=== PATIENT | male | born 1965 | race American Indian/Alaskan Native ===

== ENCOUNTER 2017-02-28 17:47 | Emergency (ER) | payer SELFPAY ==
[2017-02-28 18:00] VITALS: BP 121/86
--- NOTE | 2017-02-28 18:16 | Emergency Department Report ---
Chief Complaint: Headache Stated Complaint: HEADACHE Time Seen by Provider: 02/28/17 18:11 - HPI History of Present Illness: Patient is a 51-year-old male presents to ED with no problem medical history complaining of sharp piercing headache from the back of his head to his eyes. Patient states this is the worst headache he has had ever had patient states he does not get sick usually. Patient states he is having some blurry vision and light his eyes. He denies fever, nausea, vomiting, chest pain, shortness of breath - ROS Review of Systems: As noted in HPI - Exam Vital Signs: Vital Signs 02/28/17 17:54 Temperature 98.3 F Pulse Rate 123 H Respiratory 19 Rate Blood Pressure 121/86 O2 Sat by Pulse 96 Oximetry Physical Exam: GENERAL: Alert and oriented x3, mild distress closing eyes and holding his head , Normal Gait, atraumatic. HEAD: Head is normocephalic and a-traumatic. EYES: Pupils is dilated, sclera clear and nonerythematous, patient unable to open eyes were light examination LUNGS: Symetrical with respiration, No wheezing, no rales or crackles, CTAB. HEART: S1, S2 present, regular rate and rhythm without murmur, no rubs, no gallops. Non tender to palpation MSE screening note: Focused history and physical exam performed. Due to findings the following was ordered: ED Medical Decision Making - Medical Decision Making Labs ordered ,CT ordered. he is to be seen by ed physician ED Disposition for MSE Condition: Stable
[2017-02-28 19:14] LABS: Basophils % (Auto) 1.7 % (0.0-1.8); Eosinophils % (Auto) 8.8 % (0.0-4.3); Hematocrit 46.9 % (35.5-45.6); Hemoglobin 15.8 gm/dl (11.8-15.2); Mean Corpuscular HGB Conc 34 % (32-34); Mean Corpuscular Hemoglobin 33 pg (28-32); Mean Corpuscular Volume 97 fl (84-94); Platelet Count 221 K/mm3 (140-440); Red Blood Count 4.84 M/mm3 (3.65-5.03); Red Cell Distribution Width 14.9 % (13.2-15.2); White Blood Count 5.1 K/mm3 (4.5-11.0)
[2017-02-28 19:26] LABS: Anion Gap 25 mmol/L; BUN/Creatinine Ratio 9.09; Blood Urea Nitrogen 10 mg/dL (9-20); Calcium 8.8 mg/dL (8.4-10.2); Carbon Dioxide 24 mmol/L (22-30); Chloride 102.3 mmol/L (98-107); Glucose 81 mg/dL (75-100); Potassium 4.2 mmol/L (3.6-5.0); Sodium 147 mmol/L (137-145)
--- NOTE | 2017-02-28 20:17 | Cat Scan Report ---
FINAL REPORT PROCEDURE: CT HEAD/BRAIN WO CON TECHNIQUE: Computerized tomography of the head was performed without contrast material. HISTORY: pain COMPARISON: No prior studies are available for comparison. FINDINGS: No CT evidence of intracranial mass, hemorrhage, acute territorial infarction, or hydrocephalus. The intracranial arteries are symmetric in density. Calvarium is intact. There is chronic appearing deformity of the left medial orbital wall, likely related to old trauma. There is mucosal thickening within the left frontal and left ethmoid sinuses. Mastoids are aerated. IMPRESSION: Mild to moderate sinus disease as described above. No CT evidence of acute intracranial abnormality
--- NOTE | 2017-03-05 13:14 | ED Elopement Review ---
ED Pt Elopement review - Results review Lab results: Laboratory Tests 02/28/17 02/28/17 18:50 18:50 WBC 5.1 RBC 4.84 Hgb 15.8 H Hct 46.9 H MCV 97 H MCH 33 H MCHC 34 RDW 14.9 Plt Count 221 Lymph % (Auto) 35.9 H [place] % (Auto) 9.1 H Eos % (Auto) 8.8 H Baso % (Auto) 1.7 Lymph # 1.8 [place] # 0.5 Eos # 0.4 Baso # 0.1 Seg Neutrophils % 44.5 Seg Neutrophils # 2.3 Sodium 147 H Potassium 4.2 Chloride 102.3 Carbon Dioxide 24 Anion Gap 25 BUN 10 Creatinine 1.1 Estimated GFR > 60 BUN/Creatinine Ratio 9.09 Glucose 81 Calcium 8.8 - Call Back decision Pt Call Back Decision: Call pt to return to ED [facility] (Please call and ask how feeling. If better, no need to return)
== END 2017-03-01 01:30 | disposition left against medical advice (07) ==
LOC: ED 17:47
DX: R51 Headache (principal); Z53.21 Procedure and treatment not carried out due to patient leaving prior to being seen by health care provider
CPT/HCPCS: 36415; 70450; 80048; 85025

== ENCOUNTER 2017-06-28 00:16 | Inpatient (IN) | payer OTHER ==
[2017-06-28 03:08] LABS: Anion Gap 24 mmol/L; BUN/Creatinine Ratio 17; Basophils % (Auto) 0.7 % (0.0-1.8); Blood Urea Nitrogen 5 mg/dL (9-20); Calcium 8.4 mg/dL (8.4-10.2); Carbon Dioxide 23 mmol/L (22-30); Chloride 90.2 mmol/L (98-107); Eosinophils % (Auto) 1.2 % (0.0-4.3); Glucose 83 mg/dL (75-100); Hematocrit 35.7 % (35.5-45.6); Hemoglobin 12.4 gm/dl (11.8-15.2); Mean Corpuscular HGB Conc 35 % (32-34); Mean Corpuscular Hemoglobin 32 pg (28-32); Mean Corpuscular Volume 92 fl (84-94); Potassium 3.8 mmol/L (3.6-5.0); Red Cell Distribution Width 18.6 % (13.2-15.2); Sodium 133 mmol/L (137-145); White Blood Count 5.4 K/mm3 (4.5-11.0)
[2017-06-28 03:21] LABS: Platelet Count 64 K/mm3 (140-440)
[2017-06-28 04:27] LABS: Albumin 3.7 g/dL (3.9-5); Albumin/Globulin Ratio 1.4 %; Bilirubin,Total 18.2 mg/dL (0.1-1.2); Total Protein 6.3 g/dL (6.3-8.2)
[2017-06-28 05:08] LABS: Bilirubin,Direct 12.5 mg/dL (0-0.2); Bilirubin,Indirect 5.7 mg/dL
[2017-06-28] MEDS ORDERED: BENADRYL IV ONE (06:37)
[2017-06-28] MEDS ORDERED: REGLAN IV ONE (06:37)
[2017-06-28] MEDS ORDERED: PROVENTIL IH ONE (06:37)
[2017-06-28] MEDS ORDERED: ATROVENT IH ONE (06:37)
--- NOTE | 2017-06-28 06:39 | Emergency Department Report ---
ED General Adult HPI - General Chief complaint: Abdominal Pain Stated complaint: ABD/HEAD PAIN Time Seen by Provider: 06/28/17 03:36 Source: patient, EMS, RN notes reviewed, old records reviewed Mode of arrival: Stretcher Limitations: No Limitations - History of Present Illness Initial comments: This is a 52-year-old male. The patient is previously known to this provider. Patient presents to the ER with main complaint of abdominal pain, and distention. Pain has been present for months. He reports that his recently gotten worse. He does admits to yellowing of the skin, and jaundice in the eyes. Reports no IV drug use for 6-7 years. Reports daily alcohol intake, one to 2 beers. Pain is achy, increases with palpation and range of motion, and decreases with rest. Patient is in the right upper quadrant and right flank. Patient also complains of headache. Headache is global. Headache present for months to years. Headache is not sudden or thunderclap in nature. Patient had a negative CAT scan at this hospital within the past year for brain. Patient also endorses left upper extremity tingling and numbness, also in the left lower extremity. This is painless. This has been present for one week. He does not have exacerbating or relieving factors. Also admits to cough , wheezing, mucus production with no chest pain. -: Gradual Location: head, abdomen Severity scale (0 -10): 0 Quality: aching Consistency: constant Improves with: movement, rest Associated Symptoms: cough, headaches, loss of appetite, malaise, shortness of breath, weakness. denies: confusion, chest pain - Related Data Home Medications Medication Instructions Recorded Confirmed Last Taken No Known Home Medications [No 06/28/17 06/28/17 Unknown Reported Home Medications] Allergies Allergy/AdvReac Type Severity Reaction Status Date / Time aspirin AdvReac DIFFICULTY Verified 02/28/17 18:00 BREATHING ED Review of Systems ROS: Stated complaint: ABD/HEAD PAIN Other details as noted in HPI Constitutional: malaise, weakness Eyes: denies: eye discharge ENT: denies: epistaxis Respiratory: cough, shortness of breath, wheezing Cardiovascular: denies: chest pain Gastrointestinal: abdominal pain Genitourinary: denies: dysuria Musculoskeletal: arthralgia Skin: lesions Neurological: weakness, numbness Psychiatric: denies: homicidal thoughts, suicidal thoughts ED Past Medical Hx - Past Medical History Previous Medical History?: Yes Hx Asthma: Yes Hx COPD: Yes - Surgical History Additional Surgical History: SINUS. LEFT LEG. TONSILLECTOMY - Social History Smoking Status: Current Every Day Smoker Substance Use Type: Alcohol, Marijuana - Medications Home Medications: Home Medications Medication Instructions Recorded Confirmed Last Taken Type No Known Home Medications [No 06/28/17 06/28/17 Unknown History Reported Home Medications] ED Physical Exam - General Limitations: No Limitations General appearance: alert, in no apparent distress - Head Head exam: Present: atraumatic, normocephalic - Eye Eye exam: Present: normal appearance, PERRL, EOMI, scleral icterus - ENT ENT exam: Present: normal exam, normal orophraynx, mucous membranes moist, normal external ear exam - Neck Neck exam: Present: normal inspection, full ROM. Absent: tenderness, meningismus - Respiratory Respiratory exam: Present: wheezes. Absent: stridor - Cardiovascular Cardiovascular Exam: Present: normal rhythm, tachycardia, normal heart sounds. Absent: systolic murmur, diastolic murmur, rubs, gallop - GI/Abdominal GI/Abdominal exam: Present: soft, distended, tenderness, normal bowel sounds, other (caput medusae noted. fluid wave noted). Absent: guarding, rebound - Rectal Rectal exam: Present: deferred - Extremities Exam Extremities exam: Present: normal inspection, full ROM, normal capillary refill. Absent: pedal edema, joint swelling, calf tenderness - Back Exam Back exam: Present: normal inspection, full ROM. Absent: tenderness, CVA tenderness (R), CVA tenderness (L), muscle spasm, paraspinal tenderness, vertebral tenderness - Neurological Exam Neurological exam: Present: alert, oriented X3, normal gait, motor sensory deficit (there is 4 out of 5 strength left upper and left lower extremity. Sensation intact to light touch 4 extremity.), other (there is no facial droop. The tongue is midline. Extraocular movements are intact. Sensation intact bilaterally V1, V2, V3 distribution.Hearing intact. Tongue midline. Shoulder shrug intact bilaterally.) - Psychiatric Psychiatric exam: Present: anxious - Skin Skin exam: Present: warm, other (jaundiced skin is noted) ED Course Vital Signs 06/28/17 06/28/17 06/28/17 00:41 00:58 01:03 Temperature 98.7 F 98 F Pulse Rate 102 H 87 Pulse Rate [ Bilateral Upper Lobe] Respiratory 18 18 18 Rate Respiratory Rate [Bilateral Upper Lobe] Blood Pressure 120/71 Blood Pressure 130/68 [Right] O2 Sat by Pulse 97 98 98 Oximetry 06/28/17 06/28/17 06/28/17 02:14 06:21 07:36 Temperature 98 F Pulse Rate 92 H 71 Pulse Rate [ 80 Bilateral Upper Lobe] Respiratory 20 20 Rate Respiratory 20 Rate [Bilateral Upper Lobe] Blood Pressure Blood Pressure 99/55 [Right] O2 Sat by Pulse 92 94 Oximetry 06/28/17 06/28/17 07:46 14:00 Temperature 99.0 F Pulse Rate 115 H Pulse Rate [ 84 Bilateral Upper Lobe] Respiratory 16 Rate Respiratory 20 Rate [Bilateral Upper Lobe] Blood Pressure Blood Pressure 129/75 [Right] O2 Sat by Pulse 100 Oximetry - Reevaluation(s) Reevaluation #1: 06/28/17 07:49 Differential diagnosis, including but not limited to: Hepatic malignancy, biliary obstruction, COPD, subacute stroke Assessment and plan: 52-year-old male with scleral icterus, abdominal pain, but upper quadrant mass, hepatomegaly, hyperbilirubinemia, also incidental wheezing , clear chest x-ray, nonspecific neurologic complaints. Neurologic complaints have been present for a week, therefore not a TPA candidate for endovascular candidate, patient scores one on the NIH scale. CT scan of the brain is pending. CT scan of the abdomen and pelvis is pending. Reevaluation #2: 06/28/17 08:03 CT scan of the abdomen and pelvis demonstrates diffuse decreased attenuation of the liver, gallbladder dilated with a few small gallstones, no secondary findings of cholecystitis appreciated. Dedicated ultrasound ordered. Antibiotics empirically ordered. Reevaluation #3: 06/28/17 08:54 CT scan of brain is negative. right l quadrant ultrasound does not suggest cholecystitis. Case is presented to the hospital nurse practitioner, Florin Ba; she accepts the patient to the medical service. Reevaluation #4: 06/28/17 09:40 Case discussed with gastroenterology, Dr. Lazo, GI to follow in consultation. ED Medical Decision Making - Lab Data Result diagrams: 06/29/17 04:28 06/29/17 04:28 Vital Signs 06/28/17 06/28/17 06/28/17 00:41 00:58 01:03 Temperature 98.7 F 98 F Pulse Rate 102 H 87 Pulse Rate [ Bilateral Upper Lobe] Respiratory 18 18 18 Rate Respiratory Rate [Bilateral Upper Lobe] Blood Pressure 120/71 Blood Pressure 130/68 [Right] O2 Sat by Pulse 97 98 98 Oximetry 06/28/17 06/28/17 06/28/17 02:14 06:21 07:36 Temperature 98 F Pulse Rate 92 H 71 Pulse Rate [ 80 Bilateral Upper Lobe] Respiratory 20 20 Rate Respiratory 20 Rate [Bilateral Upper Lobe] Blood Pressure Blood Pressure 99/55 [Right] O2 Sat by Pulse 92 94 Oximetry 06/28/17 07:46 Temperature Pulse Rate Pulse Rate [ 84 Bilateral Upper Lobe] Respiratory Rate Respiratory 20 Rate [Bilateral Upper Lobe] Blood Pressure Blood Pressure [Right] O2 Sat by Pulse Oximetry Lab Results 06/28/17 06/28/17 06/28/17 Range/Units 02:25 02:25 04:03 WBC 5.4 (4.5-11.0) K/mm3 RBC 3.90 (3.65-5.03) M/mm3 Hgb 12.4 (11.8-15.2) gm/dl Hct 35.7 (35.5-45.6) % MCV 92 (84-94) fl MCH 32 (28-32) pg MCHC 35 H (32-34) % RDW 18.6 H (13.2-15.2) % Plt Count 64 L (140-440) K/mm3 Lymph % (Auto) 15.2 (13.4-35.0) % [place] % (Auto) 11.2 H (0.0-7.3) % Eos % (Auto) 1.2 (0.0-4.3) % Baso % (Auto) 0.7 (0.0-1.8) % Lymph # 0.8 L (1.2-5.4) K/mm3 [place] # 0.6 (0.0-0.8) K/mm3 Eos # 0.1 (0.0-0.4) K/mm3 Baso # 0.0 (0.0-0.1) K/mm3 Seg Neutrophils % 71.7 H (40.0-70.0) % Seg Neutrophils # 3.9 (1.8-7.7) K/mm3 Sodium 133 L (137-145) mmol/L Potassium 3.8 (3.6-5.0) mmol/L Chloride 90.2 L (98-107) mmol/L Carbon Dioxide 23 (22-30) mmol/L Anion Gap 24 mmol/L BUN 5 L (9-20) mg/dL Creatinine 0.3 L (0.8-1.5) mg/dL Estimated GFR > 60 ml/min BUN/Creatinine Ratio 17 % Glucose 83 (75-100) mg/dL Calcium 8.4 (8.4-10.2) mg/dL Total Bilirubin 18.20 H (0.1-1.2) mg/dL Direct Bilirubin 12.5 H (0-0.2) mg/dL Indirect Bilirubin 5.7 mg/dL AST 341 H (5-40) units/L ALT 86 H (7-56) units/L Alkaline Phosphatase 100 (35-129) units/L Total Protein 6.3 (6.3-8.2) g/dL Albumin 3.7 L (3.9-5) g/dL Albumin/Globulin Ratio 1.4 % Lipase 48 (13-60) units/L - EKG Data -: EKG Interpreted by Me Rate: tachycardia - EKG Data 06/28/17 07:51 Sinus tachycardia, 111 bpm, normal intervals, normal axis, not morphologically consistent with stemi - Radiology Data Radiology results: report reviewed, image reviewed X-ray of the chest is negative noncontrast CT scan of the brain: Atrophy and microangiopathic ischemic disease. No acute intracranial process is noted, sinus disease as noted. Critical care attestation.: If time is entered above; I have spent that time in minutes in the direct care of this critically ill patient, excluding procedure time. ED Disposition Clinical Impression: Left sided numbness, Hyperbilirubinemia Disposition: OP ADMIT IP TO THIS HOSP Is pt being admited?: Yes Condition: Stable
--- NOTE | 2017-06-28 07:21 | XRay Report ---
AP CHEST: HISTORY: Cough, wheezing AP view of the chest demonstrates a normal mediastinal and cardiac contour with clear lungs and normal bony and soft tissue structures. IMPRESSION: Unremarkable AP chest.
[2017-06-28] MEDS ORDERED: NACL 0.9% 1000 ML 1,000 ML IV ONE (07:44)
--- NOTE | 2017-06-28 07:48 | Cat Scan Report ---
CT HEAD WITHOUT CONTRAST: HISTORY: Headache, left-sided numbness. TECHNIQUE: Sequential CT images without contrast. FINDINGS: Images obtained show bilateral prominence of the sulci and ventricles. There are no abnormal intra- or extra-axial blood or fluid collections. There are no focal masses or evidence of mass effect. The [place] white matter differentiation appears within normal limits. Regions of periventricular decreased attenuation are consistent with microangiopathic ischemic disease. The posterior fossa structures including the fourth ventricle, cerebellum, and brainstem appear normal. The left frontal sinus and right maxillary sinus are occluded. There is mild mucosal thickening in the ethmoid air cells and left maxillary sinus. The mastoid air cells are clear. Chronic left medial orbital wall fracture is noted. IMPRESSION: Evidence of atrophy and microangiopathic ischemic disease. No acute intracranial process noted. Sinus disease as described. Correlate for acute sinusitis.
--- NOTE | 2017-06-28 07:55 | Cat Scan Report ---
CT SCAN OF THE ABDOMEN AND PELVIS WITH CONTRAST: HISTORY: Abdominal pain, jaundice, elevated bilirubin. TECHNIQUE: Helical CT in 1.25mm intervals following IV contrast. Sagittal and coronal reconstructions. FINDINGS: The liver is diffusely decreased attenuation which is most pronounced throughout the right hepatic lobe. This has the appearance of severe fatty infiltration or edema. There is no evidence for focal liver mass or surface nodularity. The portal venous system is patent. The umbilical vein is recannulized. The gallbladder appears mildly dilated and contains a few small calcified gallstones in the fundal region. The common bile duct and intrahepatic ducts are of normal caliber. No gallbladder wall thickening or surrounding fluid is identified. The spleen and pancreas demonstrate a normal size and attenuation with no evidence of abnormal mass. The kidneys are normal in size and position with no evidence of hydronephrosis or mass. The adrenal glands are normal. There is no intestinal obstruction or ascites. Scattered diverticula in the sigmoid colon are noted without acute inflammation. Normal appendix. The abdominal aorta is normal caliber. No abnormalities are identified within the retroperitoneum or mesentery. There is no evidence of peritoneal air or fluid. There is no evidence of any abnormal masses or fluid collections within the pelvis. No adenopathy is identified. The bladder is normal. IMPRESSION: Diffuse decreased attenuation of the liver consistent with severe fatty infiltration or edema. No focal liver mass. The gallbladder is mildly dilated and contains a few small gallstones however no secondary findings of acute cholecystitis are appreciated.
[2017-06-28] MEDS ORDERED: ZOSYN/NS 4.5GM/100ML 4.5 GM/100 ML VIAL IV ONE (08:30)
--- NOTE | 2017-06-28 08:34 | Ultrasound Report ---
RIGHT UPPER QUADRANT ULTRASOUND: HISTORY: Abdominal pain. Technique: Transabdominal ultrasound imaging with Doppler interrogation. FINDINGS: The gallbladder is mildly distended and contains a few shadowing stones in the gallbladder fundus. Small amount of gallbladder sludge is also noted. No evidence for gallbladder wall thickening or pericholecystic fluid. The CBD is not confidently identified on ultrasound but appears normal caliber on CT abdomen pelvis performed earlier the same day. The liver is extremely echogenic with attenuation of the ultrasound beam suggesting diffuse fatty infiltration. Deep portions of the liver are poorly imaged on ultrasound secondary to poor penetration due to body habitus/fatty infiltration of the liver. Images of the pancreas, right kidney and aorta are within normal limits. No perihepatic ascites. IMPRESSION: Echogenic liver consistent with fatty infiltration or diffuse edema. Cholelithiasis.
[2017-06-28] MEDS ORDERED: PLAVIX PO ONE (08:55)
--- NOTE | 2017-06-28 09:35 | History and Physical Report ---
<JOSE JEROME - Last Filed: 06/28/17 14:26> History of Present Illness Date of examination: 06/28/17 Date of admission: 06/28/2017 Chief complaint: Abdominal pain and shortness of breath History of present illness: Patient is 52 years old male with past medical history COPD, alcohol abuse and IV drug use who present emergency department for complaint of abdominal pain, and distention x several months. Patient localizes the pain to her epigastric area and states that it radiates to his right upper quadrant. The pain is described as a constant dull, diffuse pain that intermittently becomes sharp and well localized. The sharp pain tends to occur in different locations at different times. The intensity of the pain has been increasing over the past two days and on pain scale he now rates the pain at 8 out of 10. Eating worsened his pain, no reliving factors. His last bowel movement was over 2 days ago. he has a history of intermittent constipation but never with this level of pain and distention. He reported yellowing of the skin, pruritis and jaundice in the eyes. He denies a recent history of fever, diarrhea, hemoptysis , melena, or hematochezia. He denies a known history of hemorrhoids, diverticulitis, colon cancer, peptic ulcer disease, gastritis, acid reflux, gall bladder disease or cholelithiasis. He admits to alcohol consumption. He recalls a past history of similar pain, but has never had any diagnostic workup.Patient also complains of headache and left upper extremity tingling and numbness, also in the left lower extremity; this has been present for one week. Patient also complaints, shortness of breath and wheezing Past History Past Medical History: COPD, other ( alcohol abuse and IV drug use ) Past Surgical History: No surgical history Social history: alcohol abuse Family history: hypertension Medications and Allergies Allergies Allergy/AdvReac Type Severity Reaction Status Date / Time aspirin AdvReac DIFFICULTY Verified 02/28/17 18:00 BREATHING Home Medications Medication Instructions Recorded Confirmed Last Taken Type No Known Home Medications [No 06/28/17 06/28/17 Unknown History Reported Home Medications] Active Meds: Active Medications Acetaminophen (Tylenol) 650 mg PO Q4H PRN PRN Reason: Pain MILD(1-3)/Fever >100.5/CORMIER Albuterol (Proventil) 5 mg IH Q4H PRN PRN Reason: Shortness Of Breath Bisacodyl (Dulcolax) 10 mg [place] QDAY PRN PRN Reason: Constipation unrelieved by MOM Enoxaparin Sodium (Lovenox) 40 mg SUB-Q QDAY [facility] Levofloxacin/Dextrose (Levaquin 750mg/150ml) 750 mg in 150 mls @ 100 mls/hr IV Q24HR [facility] PRN Reason: Protocol Ipratropium [place] (Atrovent) 0.5 mg IH Q6HRT [facility] Methylprednisolone Sodium Succinate (Solu-Medrol) 40 mg IV Q6H [facility] Morphine Sulfate (Morphine) 2 mg IV Q4H PRN PRN Reason: Pain, Moderate (4-6) Ondansetron HCl (Zofran) 4 mg IM Q4H PRN PRN Reason: Nausea And Vomiting Review of Systems Constitutional: no weight loss, no weight gain, no fever Ears, nose, mouth and throat: no ear discharge, no tinnitis, no decreased hearing, no nose pain, no nasal congestion Cardiovascular: no palpitations, no rapid/irregular heart beat, no edema, no syncope Respiratory: cough, shortness of breath, dyspnea on exertion, no excessive sputum, no hemoptysis Gastrointestinal: abdominal pain, nausea, no vomiting Genitourinary Male: no hematuria, no flank pain, no discharge, no urinary frequency Musculoskeletal: no neck pain, no shooting arm pain, no arm numbness/tingling, no low back pain Integumentary: no wounds, no jaundice, no boils Neurological: no parathesias, no numbness, no tingling, no seizures Psychiatric: no sleep disturbances, no insomnia, no hypersomnia, no change in appetite Endocrine: no excessive thirst, no polydipsia, no polyuria, no nocturia Hematologic/Lymphatic: no easy bruising, no easy bleeding Allergic/Immunologic: no urticaria, no allergic rhinitis Exam - Constitutional Vitals: Temp Pulse Resp BP Pulse Ox 98 F 84 20 99/55 94 06/28/17 02:14 06/28/17 07:46 06/28/17 07:46 06/28/17 06:21 06/28/17 06:21 General appearance: Present: no acute distress - EENT Eyes: Present: PERRL ENT: hearing intact - Neck Neck: Present: supple - Respiratory Respiratory effort: normal Respiratory: bilateral: wheezing - Cardiovascular Rhythm: regular Heart Sounds: Present: S1 & S2 - Abdominal General gastrointestinal: Present: soft, tender, distended, other (caput medusae noted. fluid wave noted) Localized gastrointestinal: tender: RUQ, LUQ Male genitourinary: Present: deferred - Integumentary Integumentary: Present: clear, warm, dry - Musculoskeletal Musculoskeletal: strength equal bilaterally - Psychiatric Psychiatric: appropriate mood/affect - Neurologic Neurologic: CNII-XII intact - Allied Health Allied health notes reviewed: nursing Results - Labs CBC & Chem 7: 06/28/17 02:25 06/28/17 02:25 Labs: Laboratory Last Values WBC 5.4 K/mm3 (4.5-11.0) 06/28/17 02:25 RBC 3.90 M/mm3 (3.65-5.03) 06/28/17 02:25 Hgb 12.4 gm/dl (11.8-15.2) 06/28/17 02:25 Hct 35.7 % (35.5-45.6) 06/28/17 02:25 MCV 92 fl (84-94) 06/28/17 02:25 MCH 32 pg (28-32) 06/28/17 02:25 MCHC 35 % (32-34) H 06/28/17 02:25 RDW 18.6 % (13.2-15.2) H 06/28/17 02:25 Plt Count 64 K/mm3 (140-440) L 06/28/17 02:25 Lymph % (Auto) 15.2 % (13.4-35.0) 06/28/17 02:25 [place] % (Auto) 11.2 % (0.0-7.3) H 06/28/17 02:25 Eos % (Auto) 1.2 % (0.0-4.3) 06/28/17 02:25 Baso % (Auto) 0.7 % (0.0-1.8) 06/28/17 02:25 Lymph # 0.8 K/mm3 (1.2-5.4) L 06/28/17 02:25 [place] # 0.6 K/mm3 (0.0-0.8) 06/28/17 02:25 Eos # 0.1 K/mm3 (0.0-0.4) 06/28/17 02:25 Baso # 0.0 K/mm3 (0.0-0.1) 06/28/17 02:25 Seg Neutrophils % 71.7 % (40.0-70.0) H 06/28/17 02:25 Seg Neutrophils # 3.9 K/mm3 (1.8-7.7) 06/28/17 02:25 Sodium 133 mmol/L (137-145) L 06/28/17 02:25 Potassium 3.8 mmol/L (3.6-5.0) 06/28/17 02:25 Chloride 90.2 mmol/L (98-107) L 06/28/17 02:25 Carbon Dioxide 23 mmol/L (22-30) 06/28/17 02:25 Anion Gap 24 mmol/L 06/28/17 02:25 BUN 5 mg/dL (9-20) L 06/28/17 02:25 Creatinine 0.3 mg/dL (0.8-1.5) L 06/28/17 02:25 Estimated GFR > 60 ml/min 06/28/17 02:25 BUN/Creatinine Ratio 17 % 06/28/17 02:25 Glucose 83 mg/dL (75-100) 06/28/17 02:25 Calcium 8.4 mg/dL (8.4-10.2) 06/28/17 02:25 Total Bilirubin 18.20 mg/dL (0.1-1.2) H 06/28/17 04:03 Direct Bilirubin 12.5 mg/dL (0-0.2) H 06/28/17 04:03 Indirect Bilirubin 5.7 mg/dL 06/28/17 04:03 AST 341 units/L (5-40) H 06/28/17 04:03 ALT 86 units/L (7-56) H 06/28/17 04:03 Alkaline Phosphatase 100 units/L (35-129) 06/28/17 04:03 Total Protein 6.3 g/dL (6.3-8.2) 06/28/17 04:03 Albumin 3.7 g/dL (3.9-5) L 06/28/17 04:03 Albumin/Globulin Ratio 1.4 % 06/28/17 04:03 Lipase 48 units/L (13-60) 06/28/17 04:03 - Imaging and Cardiology CT scan - abdomen: image reviewed (diffuse decreased attenuation of the liver consistent with severe fatty infiltration or edema. Gallbladder is mildly dilated at that and contains few gallstones) Assessment and Plan Assessment and plan: Patient is 52 years old male with past medical history COPD, alcohol abuse and IV drug use who present emergency department for complaint of abdominal pain, and distention. Patient localizes the pain to her epigastric area and states that it radiates to his right upper quadrant. The pain is described as a constant dull, diffuse pain that intermittently becomes sharp and well localized. Abdominal pain We will admit to med surge CT scan of the abdomen and pelvis demonstrates diffuse decreased attenuation of the liver, gallbladder dilated with a few small gallstones, no secondary findings of cholecystitis appreciated. Abd U/S also showed fatty infiltration or diffuse edema, gallstones, but CBD appeared of normal caliber. IV fluid hydration Abdomen US ordered Pain control with morphine Started on PPi GI consult Supportive care hepatitis Etiology unclear-most likely 2/2 hepatitis Plt 64, T.ben 18.2, AST 341, ALT 86, alk phos 100, lipase 48 hepatitis panel-pending will order labs today to r/o other causes to include DONALD, AMA, ASMA, alpha I antitrypsin, AFP, ferritin, and ceruloplasm PT/INR GI consult continue supportive care Transaminitis Closely monitor liver function Jaundice Closely monitor liver function Treat underline cause Headache Most likely due to elevated bilirubin CT of the head showed sinusitis otherwise negative Started on Fiorcet Tobacco use Smoking cessation counseling done. Patient strongly advised to quit Alcohol abuse [facility] protocol initiated counseling done DVT prophylaxis Lovenox Advance Directives: Yes VTE prophylaxis?: Chemical Contraindication Mechanical VTE Prophylaxis: Treatment Not Indicated Plan of care discussed with patient/family: Yes <JERALD MA R - Last Filed: 06/28/17 20:23> History of Present Illness Date of admission: 06/28/17 09:31 Medications and Allergies Active Meds: Active Medications Acetaminophen (Tylenol) 650 mg PO Q4H PRN PRN Reason: Pain MILD(1-3)/Fever >100.5/CORMIER Acetaminophen/Butalbital/Caffeine (Fioricet) 2 tab PO Q4H PRN PRN Reason: Headache Albuterol (Proventil) 5 mg IH Q4H PRN PRN Reason: Shortness Of Breath Bisacodyl (Dulcolax) 10 mg [place] QDAY PRN PRN Reason: Constipation unrelieved by MOM Chlordiazepoxide HCl (Librium) 50 mg PO Q4HR PRN PRN Reason: CIWA-Ar 8-15 Last Admin: 06/28/17 15:56 Dose: 50 mg Enoxaparin Sodium (Lovenox) 40 mg SUB-Q QDAY [facility] Last Admin: 06/28/17 12:20 Dose: 40 mg Famotidine (Pepcid) 20 mg IV BID [facility] Levofloxacin/Dextrose (Levaquin 750mg/150ml) 750 mg in 150 mls @ 100 mls/hr IV Q24HR [facility] PRN Reason: Protocol Last Infusion: 06/28/17 14:00 Dose: Infused Ipratropium [place] (Atrovent) 0.5 mg IH Q6HRT [facility] Last Admin: 06/28/17 19:20 Dose: 0.5 mg Lorazepam (Ativan) 2 mg IV Q4HR PRN PRN Reason: NORMANH-Lan 8 Methylprednisolone Sodium Succinate (Solu-Medrol) 40 mg IV Q6H [facility] Last Admin: 06/28/17 19:47 Dose: 40 mg Morphine Sulfate (Morphine) 2 mg IV Q4H PRN PRN Reason: Pain, Moderate (4-6) Last Admin: 06/28/17 14:59 Dose: 2 mg Multivitamins (Theragran Tab) 1 each PO QDAY [facility] Ondansetron HCl (Zofran) 4 mg IV Q4H PRN PRN Reason: Nausea And Vomiting Exam - Constitutional Vitals: Temp Pulse Resp BP Pulse Ox 99.2 F 107 H 20 129/70 93 06/28/17 16:43 06/28/17 16:43 06/28/17 16:43 06/28/17 16:43 06/28/17 16:43 Results - Labs CBC & Chem 7: 06/28/17 02:25 06/28/17 02:25 Labs: Laboratory Last Values WBC 5.4 K/mm3 (4.5-11.0) 06/28/17 02:25 RBC 3.90 M/mm3 (3.65-5.03) 06/28/17 02:25 Hgb 12.4 gm/dl (11.8-15.2) 06/28/17 02:25 Hct 35.7 % (35.5-45.6) 06/28/17 02:25 MCV 92 fl (84-94) 06/28/17 02:25 MCH 32 pg (28-32) 06/28/17 02:25 MCHC 35 % (32-34) H 06/28/17 02:25 RDW 18.6 % (13.2-15.2) H 06/28/17 02:25 Plt Count 64 K/mm3 (140-440) L 06/28/17 02:25 Lymph % (Auto) 15.2 % (13.4-35.0) 06/28/17 02:25 [place] % (Auto) 11.2 % (0.0-7.3) H 06/28/17 02:25 Eos % (Auto) 1.2 % (0.0-4.3) 06/28/17 02:25 Baso % (Auto) 0.7 % (0.0-1.8) 06/28/17 02:25 Lymph # 0.8 K/mm3 (1.2-5.4) L 06/28/17 02:25 [place] # 0.6 K/mm3 (0.0-0.8) 06/28/17 02:25 Eos # 0.1 K/mm3 (0.0-0.4) 06/28/17 02:25 Baso # 0.0 K/mm3 (0.0-0.1) 06/28/17 02:25 Seg Neutrophils % 71.7 % (40.0-70.0) H 06/28/17 02:25 Seg Neutrophils # 3.9 K/mm3 (1.8-7.7) 06/28/17 02:25 PT 18.5 Sec. (12.2-14.9) H 06/28/17 10:53 INR 1.46 (0.87-1.13) H 06/28/17 10:53 Sodium 133 mmol/L (137-145) L 06/28/17 02:25 Potassium 3.8 mmol/L (3.6-5.0) 06/28/17 02:25 Chloride 90.2 mmol/L (98-107) L 06/28/17 02:25 Carbon Dioxide 23 mmol/L (22-30) 06/28/17 02:25 Anion Gap 24 mmol/L 06/28/17 02:25 BUN 5 mg/dL (9-20) L 06/28/17 02:25 Creatinine 0.3 mg/dL (0.8-1.5) L 06/28/17 02:25 Estimated GFR > 60 ml/min 06/28/17 02:25 BUN/Creatinine Ratio 17 % 06/28/17 02:25 Glucose 83 mg/dL (75-100) 06/28/17 02:25 Calcium 8.4 mg/dL (8.4-10.2) 06/28/17 02:25 Iron 230 ug/dL (49-181) H 06/28/17 10:53 TIBC 245 mcg/dL (250-450) L 06/28/17 10:53 Ferritin 176.0 ng/mL (13.0-400.0) 06/28/17 10:53 Total Bilirubin 19.50 mg/dL (0.1-1.2) H 06/28/17 09:21 Direct Bilirubin > 13.1 mg/dL (0-0.2) H 06/28/17 09:21 Indirect Bilirubin 6.4 mg/dL 06/28/17 09:21 AST 340 units/L (5-40) H 06/28/17 09:21 ALT 88 units/L (7-56) H 06/28/17 09:21 Alkaline Phosphatase 102 units/L (35-129) 06/28/17 09:21 Total Protein 6.4 g/dL (6.3-8.2) 06/28/17 09:21 Albumin 3.7 g/dL (3.9-5) L 06/28/17 09:21 Albumin/Globulin Ratio 1.4 % 06/28/17 09:21 Lipase 48 units/L (13-60) 06/28/17 04:03 Hepatitis A IgM Ab Non-reactive (NonReactive) 06/28/17 14:12 Hep Bs Antigen Non-reactive (Negative) 06/28/17 14:12 Hep B Core IgM Ab Non-reactive (NonReactive) 06/28/17 14:12 Hepatitis C Antibody Reactive (NonReactive) A 06/28/17 14:12 Assessment and Plan Assessment and plan: I saw and evaluated the patient. I agree with the findings and the plan of care as documented in the Nurse Practitioner's~note. Will order MRI for left sided tingling.
[2017-06-28 09:53] LABS: Alanine Aminotransferase 88 units/L (7-56); Albumin 3.7 g/dL (3.9-5); Albumin/Globulin Ratio 1.4 %; Alkaline Phosphatase 102 units/L (35-129); Total Protein 6.4 g/dL (6.3-8.2)
[2017-06-28] MEDS ORDERED: DULCOLAX PR PRN (10:00)
[2017-06-28] MEDS ORDERED: ZOFRAN IV PRN (10:00)
[2017-06-28] MEDS ORDERED: TYLENOL PO PRN (10:00)
[2017-06-28] MEDS ORDERED: PROVENTIL IH PRN (10:00)
--- NOTE | 2017-06-28 10:03 | Gastroenterology Consultation ---
History of Present Illness - Reason for Consult Consult date: 06/28/17 hepatitis Requesting physician: MOE SMITH - History of Present Illness Patient is a 52 y/o male with PMH of asthma/COPD who presented to the ER with c/ o abd pain with distention x several months, yellowing of the skin and eyes, headache, extremity tingling/numbness, and a cough. Head CT showed sinusitis but otherwise negative. Chest x-ray was normal. Abd CT showed diffuse decreased attenuation of the liver consistent with severe fatty infiltration or edema, gallstones but no acute cholecystitis, and no evidence of a mass. Abd U/S also showed fatty infiltration or diffuse edema, gallstones, but CBD appeared of normal caliber. GI has been consulted for hepatitis. This am pt resting on stretcher. No acute distress. A&Ox3. He states his abd pain is only present when he coughs and is described as sharp, lasting secs, and located substernal that radiates to umbilicus. Admits to jaundice, decreased appetite, headache but denies N/V, pruritus, fever, wt loss, diarrhea, constipation, or signs of bleeding such as melena, hematemesis, or hematochezia. Drinks 2 beers daily. Reports a hx of IV drug use in the past with last use approximately 6 years ago. States he had an episode of jaundice a few years ago but was never told the cause. No Fhx of liver disease. Past History Past Medical History: COPD, other (asthma) Past Surgical History: tonsillectomy, Other (left leg) Social history: lives with family, smoking, alcohol abuse (2 beers daily), IV drug use (hx of but no use in last 6 years) Family history: no significant family history Medications and Allergies Allergies Allergy/AdvReac Type Severity Reaction Status Date / Time aspirin AdvReac DIFFICULTY Verified 02/28/17 18:00 BREATHING Home Medications Medication Instructions Recorded Confirmed Last Taken Type No Known Home Medications [No 06/28/17 06/28/17 Unknown History Reported Home Medications] Active Meds: Active Medications Acetaminophen (Tylenol) 650 mg PO Q4H PRN PRN Reason: Pain MILD(1-3)/Fever >100.5/CORMIER Albuterol (Proventil) 5 mg IH Q4H PRN PRN Reason: Shortness Of Breath Bisacodyl (Dulcolax) 10 mg [place] QDAY PRN PRN Reason: Constipation unrelieved by MOM Enoxaparin Sodium (Lovenox) 40 mg SUB-Q QDAY [facility] Levofloxacin/Dextrose (Levaquin 750mg/150ml) 750 mg in 150 mls @ 100 mls/hr IV Q24HR [facility] PRN Reason: Protocol Ipratropium [place] (Atrovent) 0.5 mg IH Q6HRT [facility] Methylprednisolone Sodium Succinate (Solu-Medrol) 40 mg IV Q6H [facility] Morphine Sulfate (Morphine) 2 mg IV Q4H PRN PRN Reason: Pain, Moderate (4-6) Ondansetron HCl (Zofran) 4 mg IV Q4H PRN PRN Reason: Nausea And Vomiting Review of Systems - Review of Systems All systems: negative Constitutional: fatigue, weakness, poor appetite, other (headache) Respiratory: cough Gastrointestinal: abdominal pain (only present during coughing), jaundice, no vomiting, no hematemesis, no melena, no hematochezia Exam - Constitutional Vital Signs: Temp Pulse Resp BP Pulse Ox 98 F 84 20 99/55 94 06/28/17 02:14 06/28/17 07:46 06/28/17 07:46 06/28/17 06:21 06/28/17 06:21 General appearance: no acute distress, well-nourished - EENT Eyes: PERRL, EOM intact, scleral icterus ENT: hearing intact - Respiratory Respiratory: bilateral: CTA (anterior) - Cardiovascular Rhythm: regular Heart Sounds: Present: S1 & S2 Extremities: No edema - Gastrointestinal General gastrointestinal: Present: soft, tender (RUQ), distended (slightly), normal bowel sounds, hepatomegaly - Integumentary Integumentary: Present: warm, dry, jaundice - Neurologic Neurological: alert and oriented x3 - Labs CBC & Chem 7: 06/28/17 02:25 06/28/17 02:25 Lab Results: Laboratory Results - last 24 hr 06/28/17 06/28/17 06/28/17 02:25 02:25 04:03 WBC 5.4 RBC 3.90 Hgb 12.4 Hct 35.7 MCV 92 MCH 32 MCHC 35 H RDW 18.6 H Plt Count 64 L Lymph % (Auto) 15.2 [place] % (Auto) 11.2 H Eos % (Auto) 1.2 Baso % (Auto) 0.7 Lymph # 0.8 L [place] # 0.6 Eos # 0.1 Baso # 0.0 Seg Neutrophils % 71.7 H Seg Neutrophils # 3.9 Sodium 133 L Potassium 3.8 Chloride 90.2 L Carbon Dioxide 23 Anion Gap 24 BUN 5 L Creatinine 0.3 L Estimated GFR > 60 BUN/Creatinine Ratio 17 Glucose 83 Calcium 8.4 Total Bilirubin 18.20 H Direct Bilirubin 12.5 H Indirect Bilirubin 5.7 AST 341 H ALT 86 H Alkaline Phosphatase 100 Total Protein 6.3 Albumin 3.7 L Albumin/Globulin Ratio 1.4 Lipase 48 06/28/17 09:21 WBC RBC Hgb Hct MCV MCH MCHC RDW Plt Count Lymph % (Auto) [place] % (Auto) Eos % (Auto) Baso % (Auto) Lymph # [place] # Eos # Baso # Seg Neutrophils % Seg Neutrophils # Sodium Potassium Chloride Carbon Dioxide Anion Gap BUN Creatinine Estimated GFR BUN/Creatinine Ratio Glucose Calcium Total Bilirubin 19.50 H Direct Bilirubin Indirect Bilirubin AST 340 H ALT 88 H Alkaline Phosphatase 102 Total Protein 6.4 Albumin 3.7 L Albumin/Globulin Ratio 1.4 Lipase Assessment and Plan 1.hepatitis 2.jaundice -Plt 64, T.ben 18.2, AST 341, ALT 86, alk phos 100, lipase 48 -head CT-showed sinusitis otherwise negative -abd CT- showed diffuse decreased attenuation of the liver consistent with severe fatty infiltration or edema, gallstones but no acute cholecystitis, and no evidence of a mass -Abd U/S also showed fatty infiltration or diffuse edema, gallstones, but CBD appeared of normal caliber -pt with hx of ETOH use and past IV drug use -etiology unclear-most likely 2/2 hepatitis, doubt obstruction (no recommendations for an MRCP at this time) -hepatitis panel-pending -will order labs today to r/o other causes to include DONALD, AMA, ASMA, alpha I antitrypsin, AFP, ferritin, and ceruloplasm -PT/INR today -continue supportive care -further recommendations to follow
[2017-06-28 10:14] LABS: Bilirubin,Direct > 13.1 mg/dL (0-0.2); Bilirubin,Indirect 6.4 mg/dL
[2017-06-28 11:19] LABS: INR 1.46 (0.87-1.13)
[2017-06-28] MEDS: LEVAQUIN 750MG/150ML 750 MG/150 ML BAG IV SCH (12:19)
[2017-06-28] MEDS: LOVENOX SUB-Q SCH (12:20)
[2017-06-28] MEDS: ATROVENT IH SCH ×2 (14:11→19:20)
[2017-06-28] MEDS ORDERED: ATIVAN IV PRN (14:28)
[2017-06-28] MEDS: MORPHINE IV PRN ×2 (14:59→21:01)
[2017-06-28 15:55] LABS: Iron 230 ug/dL (49-181)
[2017-06-28] MEDS: LIBRIUM PO PRN (15:56)
[2017-06-28 16:54] LABS: Total Iron Binding Capacity 245 mcg/dL (250-450)
[2017-06-28] MEDS: PEPCID IV SCH (21:29)
[2017-06-29] MEDS: ATROVENT IH SCH ×4 (01:26→20:36)
[2017-06-29 01:39] LABS: Urine Drugs of Abuse Note Disclamer
[2017-06-29 05:19] LABS: Hematocrit 34.8 % (35.5-45.6); Mean Corpuscular HGB Conc 34 % (32-34); Mean Corpuscular Hemoglobin 32 pg (28-32); Mean Corpuscular Volume 93 fl (84-94); Red Blood Count 3.75 M/mm3 (3.65-5.03); Red Cell Distribution Width 18.5 % (13.2-15.2); White Blood Count 6.6 K/mm3 (4.5-11.0)
[2017-06-29 05:24] LABS: INR 1.48 (0.87-1.13)
[2017-06-29 05:30] LABS: Platelet Count 70 K/mm3 (140-440)
[2017-06-29 05:45] LABS: Alanine Aminotransferase 79 units/L (7-56); Albumin 3.5 g/dL (3.9-5); Alkaline Phosphatase 85 units/L (35-129); Anion Gap 21 mmol/L; BUN/Creatinine Ratio 17; Blood Urea Nitrogen 5 mg/dL (9-20); Calcium 8.2 mg/dL (8.4-10.2); Carbon Dioxide 24 mmol/L (22-30); Chloride 91.6 mmol/L (98-107); Glucose 135 mg/dL (75-100); Sodium 133 mmol/L (137-145)
[2017-06-29 06:26] LABS: Albumin/Globulin Ratio 1.3 %; Total Protein 6.3 g/dL (6.3-8.2)
[2017-06-29 06:39] LABS: Anisocytosis 1+; Basophils % (Manual) 0 % (0.0-1.8); Blastocytes % (Manual) 0 %; Eosinophils % (Manual) 0 % (0.0-4.3); Platelet Estimate Appears Decreased; Polychromasia Rare; Rouleaux Rare; Target Cells Rare
[2017-06-29 06:40] LABS: Diff Status Complete
[2017-06-29] MEDS ORDERED: PROTONIX IV SCH (10:00)
--- NOTE | 2017-06-29 10:21 | Magnetic Resonance Report ---
MRI BRAIN WITHOUT CONTRAST INDICATION: Headaches. COMPARISON: Yesterday's head CT. FINDINGS: Noncontrast multiplanar and multisequence MRI of the brain demonstrate symmetric, age-appropriate ventricles and sulci. Mild periventricular and few white matter FLAIR and T2 weighted hyperintensities. No acute infarct, hemorrhage, mass effect or midline shift. No abnormal extra axial masses or fluid collections. Normal major intracranial vascular flow voids. Normal posterior fossa with symmetric seventh and eighth nerve complexes and preserved basilar cisterns. Normal eye globes. Rightward nasal septal deviation. Severe, completely opacified right maxillary sinus appears slightly hypoplastic. Left frontal sinus also completely opacified. Mild bilateral ethmoid and left maxillary sinus mucosal thickening. Clear remainder imaged paranasal sinuses and mastoid air cells. Normal midline structures without evidence of Chiari malformation. CONCLUSION: No acute intracranial abnormality, though sinus disease noted, including severe right maxillary and left frontal sinusitis, as described. ENT correlation may be further helpful, as appropriate. Thank you for the opportunity to participate in this patient's care.
[2017-06-29] MEDS: LOVENOX SUB-Q SCH (10:26)
[2017-06-29] MEDS: LEVAQUIN 750MG/150ML 750 MG/150 ML BAG IV SCH (10:26)
[2017-06-29] MEDS: PEPCID IV SCH (10:26)
[2017-06-29] MEDS: THERAGRAN Tab PO SCH (10:27)
--- NOTE | 2017-06-29 10:32 | Gastroenterology Progress Note ---
Assessment and Plan 1.hepatitis 2.jaundice -plt 70, T. ben 21.9, AST 267/ALT 79 (trending down) -INR 1.48 -stable -pt with hx of ETOH use and past IV drug use -etiology unclear-most likely 2/2 alcoholic hepatitis, doubt obstruction, however autoimmune serologies still pending -hepatitis C antibody positive -will order VL and genotype today- will need treatment as an outpatient -continue supportive care -Recommend continued monitoring for at least the next 24 hours for liver failure -will follow Subjective Date of service: 06/29/17 Interval history: Patient resting in bed. No acute distress or events overnight. Tolerating diet w /o N/V. Denies abd pain but abd TTP. Objective - Constitutional Vitals: Temp Pulse Resp BP Pulse Ox 98.4 F 115 H 20 129/65 93 06/29/17 07:35 06/29/17 08:51 06/29/17 08:51 06/29/17 07:35 06/29/17 08:41 General appearance: no acute distress - EENT Eyes: PERRL, EOM intact, scleral icterus ENT: hearing intact - Respiratory Respiratory: bilateral: CTA - Cardiovascular Rhythm: other (tachycardia) Heart Sounds: Present: S1 & S2 - Extremities Extremities: No edema - Gastrointestinal General gastrointestinal: Present: soft, tender (RUQ/epigastric), normal bowel sounds, hepatomegaly - Integumentary Integumentary: Present: warm, dry, jaundice - Neurologic Neurological: alert and oriented x3 - Labs CBC & Chem 7: 06/29/17 04:28 06/29/17 04:28 Labs: Laboratory Results - last 24 hr 06/28/17 06/28/17 06/28/17 10:53 10:53 10:53 WBC RBC Hgb Hct MCV MCH MCHC RDW Plt Count Add Manual Diff Total Counted Seg Neutrophils % Seg Neuts % (Manual) Band Neutrophils % Lymphocytes % (Manual) Reactive Lymphs % (Man) Monocytes % (Manual) Eosinophils % (Manual) Basophils % (Manual) Metamyelocytes % Myelocytes % Promyelocytes % Blast Cells % Nucleated RBC % Seg Neutrophils # Man Band Neutrophils # Lymphocytes # (Manual) Abs React Lymphs (Man) Monocytes # (Manual) Eosinophils # (Manual) Basophils # (Manual) Metamyelocytes # Myelocytes # Promyelocytes # Blast Cells # WBC Morphology Hypersegmented Neuts Hyposegmented Neuts Hypogranular Neuts Smudge Cells Toxic Granulation Toxic Vacuolation Dohle Bodies Pelger-Huet Anomaly Mak Rods Platelet Estimate Clumped Platelets Plt Clumps, EDTA Large Platelets Giant Platelets Platelet Satelliting Plt Morphology Comment RBC Morphology Dimorphic RBCs Polychromasia Hypochromasia Poikilocytosis Anisocytosis Microcytosis Macrocytosis Spherocytes Pappenheimer Bodies Sickle Cells Target Cells Tear Drop Cells Ovalocytes Helmet Cells [place] Bodies [place] Rings [place] Cells Bite Cells Crenated Cell Elliptocytes Acanthocytes (Spur) Rouleaux Hemoglobin C Crystals Schistocytes Malaria parasites Binh Bodies Hem Pathologist Commnt PT 18.5 H INR 1.46 H Sodium Potassium Chloride Carbon Dioxide Anion Gap BUN Creatinine Estimated GFR BUN/Creatinine Ratio Glucose Calcium Iron 230 H TIBC 245 L Ferritin 176.0 Total Bilirubin AST ALT Alkaline Phosphatase Total Protein Albumin Albumin/Globulin Ratio Hepatitis A IgM Ab Hep Bs Antigen Hep B Core IgM Ab Hepatitis C Antibody 06/28/17 06/29/17 06/29/17 14:12 04:28 04:28 WBC 6.6 RBC 3.75 Hgb 12.0 Hct 34.8 L MCV 93 MCH 32 MCHC 34 RDW 18.5 H Plt Count 70 L Add Manual Diff Complete Total Counted 100 Seg Neutrophils % Tractor Trailer Mechanic Seg Neuts % (Manual) 95.0 H Band Neutrophils % 1.0 Lymphocytes % (Manual) 2.0 L Reactive Lymphs % (Man) 0 Monocytes % (Manual) 2.0 Eosinophils % (Manual) 0 Basophils % (Manual) 0 Metamyelocytes % 0 Myelocytes % 0 Promyelocytes % 0 Blast Cells % 0 Nucleated RBC % Not Reportable Seg Neutrophils # Man 6.3 Band Neutrophils # 0.1 Lymphocytes # (Manual) 0.1 L Abs React Lymphs (Man) 0.0 Monocytes # (Manual) 0.1 Eosinophils # (Manual) 0.0 Basophils # (Manual) 0.0 Metamyelocytes # 0.0 Myelocytes # 0.0 Promyelocytes # 0.0 Blast Cells # 0.0 WBC Morphology Not Reportable Hypersegmented Neuts Not Reportable Hyposegmented Neuts Not Reportable Hypogranular Neuts Not Reportable Smudge Cells Not Reportable Toxic Granulation Not Reportable Toxic Vacuolation Not Reportable Dohle Bodies Not Reportable Pelger-Huet Anomaly Not Reportable Mak Rods Not Reportable Platelet Estimate Appears decreased Clumped Platelets Not Reportable Plt Clumps, EDTA Not Reportable Large Platelets Not Reportable Giant Platelets Not Reportable Platelet Satelliting Not Reportable Plt Morphology Comment Not Reportable RBC Morphology Not Reportable Dimorphic RBCs Not Reportable Polychromasia Rare Hypochromasia Not Reportable Poikilocytosis Not Reportable Anisocytosis 1+ Microcytosis Not Reportable Macrocytosis Not Reportable Spherocytes Not Reportable Pappenheimer Bodies Not Reportable Sickle Cells Not Reportable Target Cells Rare Tear Drop Cells Not Reportable Ovalocytes Not Reportable Helmet Cells Not Reportable [place] Bodies Not Reportable [place] Rings Not Reportable [place]ard Cells Not Reportable Bite Cells Not Reportable Crenated Cell Not Reportable Elliptocytes Not Reportable Acanthocytes (Spur) Not Reportable Rouleaux Rare Hemoglobin C Crystals Not Reportable Schistocytes Not Reportable Malaria parasites Not Reportable Binh Bodies Not Reportable Hem Pathologist Commnt No PT INR Sodium 133 L Potassium 4.0 Chloride 91.6 L Carbon Dioxide 24 Anion Gap 21 BUN 5 L Creatinine 0.3 L Estimated GFR > 60 BUN/Creatinine Ratio 17 Glucose 135 H Calcium 8.2 L Iron TIBC Ferritin Total Bilirubin 21.90 H AST 267 H ALT 79 H Alkaline Phosphatase 85 Total Protein 6.3 Albumin 3.5 L Albumin/Globulin Ratio 1.3 Hepatitis A IgM Ab Non-reactive Hep Bs Antigen Non-reactive Hep B Core IgM Ab Non-reactive Hepatitis C Antibody Reactive A 06/29/17 04:28 WBC RBC Hgb Hct MCV MCH MCHC RDW Plt Count Add Manual Diff Total Counted Seg Neutrophils % Seg Neuts % (Manual) Band Neutrophils % Lymphocytes % (Manual) Reactive Lymphs % (Man) Monocytes % (Manual) Eosinophils % (Manual) Basophils % (Manual) Metamyelocytes % Myelocytes % Promyelocytes % Blast Cells % Nucleated RBC % Seg Neutrophils # Man Band Neutrophils # Lymphocytes # (Manual) Abs React Lymphs (Man) Monocytes # (Manual) Eosinophils # (Manual) Basophils # (Manual) Metamyelocytes # Myelocytes # Promyelocytes # Blast Cells # WBC Morphology Hypersegmented Neuts Hyposegmented Neuts Hypogranular Neuts Smudge Cells Toxic Granulation Toxic Vacuolation Dohle Bodies Pelger-Huet Anomaly Mak Rods Platelet Estimate Clumped Platelets Plt Clumps, EDTA Large Platelets Giant Platelets Platelet Satelliting Plt Morphology Comment RBC Morphology Dimorphic RBCs Polychromasia Hypochromasia Poikilocytosis Anisocytosis Microcytosis Macrocytosis Spherocytes Pappenheimer Bodies Sickle Cells Target Cells Tear Drop Cells Ovalocytes Helmet Cells [place] Bodies [place] Rings [place] Cells Bite Cells Crenated Cell Elliptocytes Acanthocytes (Spur) Rouleaux Hemoglobin C Crystals Schistocytes Malaria parasites Binh Bodies Hem Pathologist Commnt PT 18.7 H INR 1.48 H Sodium Potassium Chloride Carbon Dioxide Anion Gap BUN Creatinine Estimated GFR BUN/Creatinine Ratio Glucose Calcium Iron TIBC Ferritin Total Bilirubin AST ALT Alkaline Phosphatase Total Protein Albumin Albumin/Globulin Ratio Hepatitis A IgM Ab Hep Bs Antigen Hep B Core IgM Ab Hepatitis C Antibody
[2017-06-29] MEDS: LIBRIUM PO PRN (11:15)
[2017-06-29] MEDS: FIORICET PO PRN (11:16)
[2017-06-29] MEDS ORDERED: DILAUDID IV PRN (13:49)
--- NOTE | 2017-06-29 16:23 | Progress Note ---
Assessment and Plan Abdominal pain - likely due to acute hepatitis CT scan of the abdomen and pelvis demonstrates diffuse decreased attenuation of the liver, gallbladder dilated with a few small gallstones, no secondary findings of cholecystitis appreciated. Abd U/S also showed fatty infiltration or diffuse edema, gallstones, but CBD appeared of normal caliber. Pain control with morphine Started on PPi GI following and recommended Supportive care Acute hepatitis Etiology unclear-most likely 2/2 viral and alcoholic hepatitis Plt 64, T.ben 18.2, AST 341, ALT 86, alk phos 100, lipase 48 hepatitis panel + hepatitis c antibody follow DONALD, AMA, ASMA, alpha I antitrypsin, AFP, ferritin, and ceruloplasm Monitor PT/INR continue supportive care Transaminitis Closely monitor liver function elevated billirubin Closely monitor liver function Treat underline cause Headache Most likely due to elevated bilirubin CT of the head showed sinusitis otherwise negative Started on Fiorcet Tobacco use Smoking cessation counseling done. Patient strongly advised to quit Alcohol abuse [facility] protocol initiated counseling done DVT prophylaxis Lovenox Brief History: Patient is 52 years old male with past medical history COPD, alcohol abuse and IV drug use who present emergency department for complaint of abdominal pain, and distention. Patient localizes the pain to her epigastric area and states that it radiates to his right upper quadrant. The pain is described as a constant dull, diffuse pain that intermittently becomes sharp and well localized. Subjective Date of service: 06/29/17 Interval history: Patient seen and examined. Medical records and medication list reviewed. No acute event overnight noted by the RN. Patient states his headache slightly improves. Patient is tolerating diet. Discussed plan of care at bedside with patient. Objective - Exam Narrative Exam: General appearance: Present: no acute distress - EENT Eyes: Present: PERRL, scaral icterus ENT: hearing intact - Neck Neck: Present: supple - Respiratory Respiratory effort: normal Respiratory: bilateral: wheezing - Cardiovascular Rhythm: regular Heart Sounds: Present: S1 & S2 - Abdominal General gastrointestinal: Present: soft, tender, distended, other (caput medusae noted. fluid wave noted) Localized gastrointestinal: tender: RUQ, LUQ Male genitourinary: Present: deferred - Integumentary Integumentary: Present: clear, warm, dry - Musculoskeletal Musculoskeletal: strength equal bilaterally - Psychiatric Psychiatric: appropriate mood/affect - Neurologic Neurologic: CNII-XII intact - Allied Health Allied health notes reviewed: nursing - Constitutional Vitals: Vital Signs - 12hr 06/29/17 06/29/17 06/29/17 07:35 08:41 08:51 Temperature 98.4 F Pulse Rate 102 H Pulse Rate [ 103 H 115 H Bilateral Throughout] Respiratory 20 Rate Respiratory 18 20 Rate [Bilateral Throughout] Blood Pressure 129/65 O2 Sat by Pulse 93 93 Oximetry 06/29/17 06/29/17 06/29/17 14:36 14:46 15:51 Temperature 98.7 F Pulse Rate 101 H Pulse Rate [ 104 H 93 H Bilateral Throughout] Respiratory 20 Rate Respiratory 20 20 Rate [Bilateral Throughout] Blood Pressure 133/75 O2 Sat by Pulse 94 Oximetry - Labs CBC & Chem 7: 06/29/17 04:28 06/30/17 04:45 Labs: Abnormal lab results 06/28/17 06/29/17 06/29/17 Range/Units 10:53 04:28 04:28 Hct 34.8 L (35.5-45.6) % RDW 18.5 H (13.2-15.2) % Plt Count 70 L (140-440) K/mm3 Seg Neuts % (Manual) 95.0 H (40.0-70.0) % Lymphocytes % (Manual) 2.0 L (13.4-35.0) % Lymphocytes # (Manual) 0.1 L (1.2-5.4) K/mm3 PT (12.2-14.9) Sec. INR (0.87-1.13) Sodium 133 L (137-145) mmol/L Chloride 91.6 L (98-107) mmol/L BUN 5 L (9-20) mg/dL Creatinine 0.3 L (0.8-1.5) mg/dL Glucose 135 H (75-100) mg/dL Calcium 8.2 L (8.4-10.2) mg/dL TIBC 245 L (250-450) mcg/dL Total Bilirubin 21.90 H (0.1-1.2) mg/dL AST 267 H (5-40) units/L ALT 79 H (7-56) units/L Albumin 3.5 L (3.9-5) g/dL 06/29/17 Range/Units 04:28 Hct (35.5-45.6) % RDW (13.2-15.2) % Plt Count (140-440) K/mm3 Seg Neuts % (Manual) (40.0-70.0) % Lymphocytes % (Manual) (13.4-35.0) % Lymphocytes # (Manual) (1.2-5.4) K/mm3 PT 18.7 H (12.2-14.9) Sec. INR 1.48 H (0.87-1.13) Sodium (137-145) mmol/L Chloride (98-107) mmol/L BUN (9-20) mg/dL Creatinine (0.8-1.5) mg/dL Glucose (75-100) mg/dL Calcium (8.4-10.2) mg/dL TIBC (250-450) mcg/dL Total Bilirubin (0.1-1.2) mg/dL AST (5-40) units/L ALT (7-56) units/L Albumin (3.9-5) g/dL
[2017-06-30] MEDS: ATROVENT IH SCH ×2 (02:29→08:31)
[2017-06-30] MEDS: FIORICET PO PRN (02:59)
[2017-06-30 05:55] LABS: Alanine Aminotransferase 69 units/L (7-56); Albumin 3.4 g/dL (3.9-5); Alkaline Phosphatase 112 units/L (35-129); Anion Gap 21 mmol/L; BUN/Creatinine Ratio 30; Blood Urea Nitrogen 9 mg/dL (9-20); Calcium 8.7 mg/dL (8.4-10.2); Carbon Dioxide 24 mmol/L (22-30); Glucose 114 mg/dL (75-100); Sodium 135 mmol/L (137-145)
[2017-06-30 07:38] LABS: Albumin/Globulin Ratio 1.2 %; Total Protein 6.3 g/dL (6.3-8.2)
--- NOTE | 2017-06-30 08:53 | Gastroenterology Progress Note ---
Assessment and Plan - Patient Problems (1) Cirrhosis of liver Current Visit: Yes Status: Acute Qualifiers: Hepatic cirrhosis type: H Ascites presence: A Plan to address problem: Likely has advanced cirrhosis with coagulopathy, fatty nodular liver and jaundice. ETOH may be the predominant etiology, but likely has hepatitis C as well. Appears to be stable clinically, despite mild increase in t. bili. No suggestion of hepatocellular carcinoma on contrasted CT. No dilated ducts to suggest obstruction from gallstones which are present. U/S does not suggest cholecystitis. HCV quantitation ordered, but may take a week. It is reasonable to f/u as an outpatient at this point. Patient strongly advised to cease ALL ETOH consumption. Prognosis is guarded overall. He may benefit from an outpatient MRI for better exclusion of HCC. (2) Hepatitis C antibody positive in blood Current Visit: Yes Status: Acute Subjective Date of service: 06/30/17 Principal diagnosis: Cirrhosis, jaundice Interval history: The patient reports feeling OK. No change. Has mild RUQ discomfort and reports tenderness to palpation. He reported to me a history of very heavy ETOH in the past, "a case of beer or liquor daily" for many years, but reports only 2 beers per day in recent years. Objective - Constitutional Vitals: Temp Pulse Resp BP Pulse Ox 98.1 F 87 20 127/71 94 06/30/17 07:26 06/30/17 07:26 06/30/17 07:26 06/30/17 07:26 06/30/17 07:26 General appearance: no acute distress - EENT Eyes: scleral icterus ENT: hearing intact - Neck Neck: supple, normal ROM - Respiratory Respiratory effort: normal Respiratory: bilateral: CTA - Cardiovascular Rhythm: regular - Gastrointestinal General gastrointestinal: Present: soft, tender (Tender hepatomegaly. The liver is nodular and firm.), non-distended, normal bowel sounds - Neurologic Neurological: alert and oriented x3, other (resting tremor) - Labs CBC & Chem 7: 06/29/17 04:28 06/30/17 04:45 Labs: Laboratory Results - last 24 hr 06/28/17 06/28/17 06/30/17 10:53 10:53 04:45 Sodium 135 L Potassium 4.0 Chloride 94.0 L Carbon Dioxide 24 Anion Gap 21 BUN 9 Creatinine 0.3 L Estimated GFR > 60 BUN/Creatinine Ratio 30 Glucose 114 H Calcium 8.7 Total Bilirubin 23.90 H AST 196 H ALT 69 H Alkaline Phosphatase 112 Total Protein 6.3 Albumin 3.4 L Albumin/Globulin Ratio 1.2 [id number] 170 Ceruloplasmin 29
[2017-06-30] MEDS: LOVENOX SUB-Q SCH (09:00)
[2017-06-30] MEDS: THERAGRAN Tab PO SCH (09:00)
[2017-06-30] MEDS ORDERED: LEVAQUIN PO SCH (10:00)
[2017-06-30] MEDS: AUGMENTIN 875 MG PO SCH ×2 (10:50→23:33)
[2017-06-30] MEDS: LIBRIUM PO PRN (10:50)
[2017-06-30] MEDS: HABITROL TD SCH (10:52)
[2017-06-30] MEDS: D5NS 1,000 ML IV SCH (12:08)
[2017-06-30] MEDS: FOLVITE PO SCH (12:09)
[2017-06-30] MEDS ORDERED: VITAMIN B-1 100 MG in NACL 0.9% 50 ML IV ONE (12:30)
--- NOTE | 2017-06-30 12:56 | Progress Note ---
Assessment and Plan Acute enecphalopathy -likley from alcohol withdrawl and elevated bilirubin - cont [facility] protocol, monitor liver function Delirium tremens - avoid ativan due to hepatic failure - placed on librium and haldol as needed - start on banana bag, iv fluid hydration - thiamin, folate - Patient need to be transfer to ICU, discussed with Dr. Muniz Abdominal pain - likely due to acute hepatitis CT scan of the abdomen and pelvis demonstrates diffuse decreased attenuation of the liver, gallbladder dilated with a few small gallstones, no secondary findings of cholecystitis appreciated. Abd U/S also showed fatty infiltration or diffuse edema, gallstones, but CBD appeared of normal caliber. Pain control with morphine Started on PPi GI following and recommended Supportive care Hepatitis with cirrhosis Etiology unclear-most likely 2/2 viral and alcoholic hepatitis Plt 64, T.ben 18.2, AST 341, ALT 86, alk phos 100, lipase 48 hepatitis panel + hepatitis c antibody NO hepatocellular carcinoma on contrasted CT. will need MRI to exclude carcinoma No dilated ducts to suggest obstruction from gallstones which are present on abdominal US. U/S does not suggest cholecystitis. HCV quantitation ordered Ordered DONALD, AMA, ASMA, alpha I antitrypsin, AFP, ferritin, and ceruloplasm Monitor PT/INR continue supportive care Placed on low dose steroid Transaminitis Closely monitor liver function elevated billirubin Closely monitor liver function Headache Most likely due to elevated bilirubin CT of the head showed sinusitis otherwise negative Started on Fiorcet MRI head showed no acute infract Tobacco use Smoking cessation counseling done following admission. Patient strongly advised to quit DVT prophylaxis Lovenox Brief History: Patient is 52 years old male with past medical history COPD, alcohol abuse and IV drug use who present emergency department for complaint of abdominal pain, and distention. Patient localizes the pain to her epigastric area and states that it radiates to his right upper quadrant. The pain is described as a constant dull, diffuse pain that intermittently becomes sharp and well localized. Subjective Date of service: 06/30/17 Principal diagnosis: Cirrhosis, jaundice Interval history: Patient seen and examined. Medical records and medication list reviewed. Patient became confused, disoriented this morning, with significant tremor Placed on restrained. Discussed plan of care at bedside with Rn and also with CC attending Dr. Muniz. Objective - Exam Narrative Exam: General appearance: Present: moderate distress - EENT Eyes: Present: PERRL, scaral icterus ENT: hearing intact - Neck Neck: Present: supple - Respiratory Respiratory effort: normal Respiratory: bilateral: wheezing - Cardiovascular Rhythm: regular Heart Sounds: Present: S1 & S2, tachycardic - Abdominal General gastrointestinal: Present: soft, tender, distended, other (caput medusae noted. fluid wave noted) Localized gastrointestinal: tender: RUQ, LUQ Male genitourinary: Present: deferred - Integumentary Integumentary: Present: clear, warm, dry - Musculoskeletal Musculoskeletal: strength equal bilaterally - Psychiatric Psychiatric: appropriate mood/affect - Neurologic Neurologic: Confused, not oriented to time place or person - Allied Health Allied health notes reviewed: nursing - Constitutional Vitals: Vital Signs - 12hr 06/30/17 06/30/17 06/30/17 02:59 07:26 08:31 Temperature 98.1 F Pulse Rate 87 Pulse Rate [ 112 H Bilateral Throughout] Respiratory 20 20 Rate Respiratory 20 Rate [Bilateral Throughout] Blood Pressure 127/71 O2 Sat by Pulse 94 94 Oximetry 06/30/17 08:41 Temperature Pulse Rate Pulse Rate [ 121 H Bilateral Throughout] Respiratory Rate Respiratory 20 Rate [Bilateral Throughout] Blood Pressure O2 Sat by Pulse Oximetry - Labs CBC & Chem 7: 06/29/17 04:28 06/30/17 04:45 Labs: Abnormal lab results 06/30/17 Range/Units 04:45 Sodium 135 L (137-145) mmol/L Chloride 94.0 L (98-107) mmol/L Creatinine 0.3 L (0.8-1.5) mg/dL Glucose 114 H (75-100) mg/dL Total Bilirubin 23.90 H (0.1-1.2) mg/dL AST 196 H (5-40) units/L ALT 69 H (7-56) units/L Albumin 3.4 L (3.9-5) g/dL
[2017-06-30] MEDS: DELTASONE PO SCH (13:13)
[2017-06-30] MEDS ORDERED: ATIVAN IV ONE (13:45)
[2017-06-30] MEDS ORDERED: VITAMIN B-1 100 MG, FOLVITE 1 MG, INFUVITE 10 ML in NACL 0.9% 1000 ML 1,000 ML IV ONE (15:30)
[2017-06-30] MEDS: HALDOL IM PRN (17:19)
[2017-07-01] MEDS: D5NS 1,000 ML IV SCH (03:29)
[2017-07-01 05:24] LABS: Hematocrit 31.9 % (35.5-45.6); Hemoglobin 10.7 gm/dl (11.8-15.2); Mean Corpuscular HGB Conc 33 % (32-34); Mean Corpuscular Hemoglobin 32 pg (28-32); Mean Corpuscular Volume 94 fl (84-94); Red Blood Count 3.38 M/mm3 (3.65-5.03); White Blood Count 7.5 K/mm3 (4.5-11.0)
[2017-07-01 05:26] LABS: INR 2.08 (0.87-1.13)
[2017-07-01 05:33] LABS: Alanine Aminotransferase 60 units/L (7-56); Alkaline Phosphatase 64 units/L (35-129); BUN/Creatinine Ratio 70; Blood Urea Nitrogen 14 mg/dL (9-20); Calcium 7.7 mg/dL (8.4-10.2); Carbon Dioxide 26 mmol/L (22-30); Glucose 121 mg/dL (75-100)
[2017-07-01 05:34] LABS: Anion Gap 15 mmol/L; Chloride 103.1 mmol/L (98-107); Potassium 3.2 mmol/L (3.6-5.0); Sodium 141 mmol/L (137-145)
[2017-07-01 05:36] LABS: Platelet Count 63 K/mm3 (140-440); Red Cell Distribution Width 20.1 % (13.2-15.2)
[2017-07-01 06:10] LABS: Albumin/Globulin Ratio 1.6 %; Total Protein 4.9 g/dL (6.3-8.2)
[2017-07-01 07:26] LABS: Anisocytosis 1+; Basophils % (Manual) 0 % (0.0-1.8); Blastocytes % (Manual) 0 %; Eosinophils % (Manual) 0 % (0.0-4.3); Hypochromasia 1+; Ovalocytes Few; Target Cells Rare
[2017-07-01 07:27] LABS: Diff Status Complete; Platelet Estimate Consistent w Auto; Polychromasia Few
[2017-07-01] MEDS: HALDOL IM PRN (08:36)
[2017-07-01] MEDS: DELTASONE PO SCH (11:54)
[2017-07-01] MEDS: THERAGRAN Tab PO SCH (11:55)
[2017-07-01] MEDS: HABITROL TD SCH (11:55)
[2017-07-01] MEDS: LIBRIUM PO PRN (11:55)
[2017-07-01] MEDS: AUGMENTIN 875 MG PO SCH ×2 (11:55→22:27)
[2017-07-01] MEDS: FOLVITE PO SCH (11:56)
--- NOTE | 2017-07-01 13:02 | Progress Note ---
Assessment and Plan Acute enecphalopathy -likley from alcohol withdrawl and elevated bilirubin - cont [facility] protocol, monitor liver function Delirium tremens - avoid ativan due to hepatic failure - placed on librium and haldol as needed - s/p banana bag, cont iv fluid hydration with D5NS - thiamin, folate, replace K Abdominal pain - likely due to acute hepatitis CT scan of the abdomen and pelvis demonstrates diffuse decreased attenuation of the liver, gallbladder dilated with a few small gallstones, no secondary findings of cholecystitis appreciated. Abd U/S also showed fatty infiltration or diffuse edema, gallstones, but CBD appeared of normal caliber. Pain control with morphine Started on PPi GI following and recommended Supportive care Hepatitis with cirrhosis Etiology unclear-most likely 2/2 viral and alcoholic hepatitis hepatitis panel + hepatitis c antibody NO hepatocellular carcinoma on contrasted CT. will need MRI to exclude carcinoma No dilated ducts to suggest obstruction from gallstones which are present on abdominal US. U/S does not suggest cholecystitis. HCV quantitation ordered Ordered DONALD, AMA, ASMA, AFP, normal ceruloplasm, ferritin and alpha I antitrypsin Monitor PT/INR continue supportive care Placed on low dose steroid Transaminitis Closely monitor liver function elevated billirubin Closely monitor liver function Headache Most likely due to elevated bilirubin CT of the head showed sinusitis otherwise negative Started on Fiorcet MRI head showed no acute infract Tobacco use Smoking cessation counseling done following admission. Patient strongly advised to quit DVT prophylaxis Lovenox Disposition: will discuss hospice with family Brief History: Patient is 52 years old male with past medical history COPD, alcohol abuse and IV drug use who present emergency department for complaint of abdominal pain, and distention. Patient localizes the pain to her epigastric area and states that it radiates to his right upper quadrant. The pain is described as a constant dull, diffuse pain that intermittently becomes sharp and well localized. Subjective Date of service: 07/01/17 Principal diagnosis: Cirrhosis, jaundice Interval history: Patient seen and examined. Medical records and medication list reviewed. Patient still, disoriented, with significant tremor Placed on restrained. Discussed plan of care at bedside with Rn and with GI Objective - Exam Narrative Exam: General appearance: Present: moderate distress - EENT Eyes: Present: PERRL, scaral icterus ENT: hearing intact - Neck Neck: Present: supple - Respiratory Respiratory effort: normal Respiratory: bilateral: wheezing - Cardiovascular Rhythm: regular Heart Sounds: Present: S1 & S2, tachycardic - Abdominal General gastrointestinal: Present: soft, tender, distended, other (caput medusae noted. fluid wave noted) Localized gastrointestinal: tender: RUQ, LUQ Male genitourinary: Present: deferred - Integumentary Integumentary: Present: jaundice, warm, dry - Musculoskeletal Musculoskeletal: strength equal bilaterally - Psychiatric Psychiatric: appropriate mood/affect - Neurologic Neurologic: Confused, not oriented to time place or person - Allied Health Allied health notes reviewed: nursing - Constitutional Vitals: Vital Signs - 12hr 07/01/17 07/01/17 07/01/17 04:04 07:23 12:32 Temperature 98.2 F 98.4 F 98.4 F Pulse Rate 101 H 114 H 92 H Respiratory 18 18 22 Rate Blood Pressure 107/60 122/73 97/59 O2 Sat by Pulse 93 93 94 Oximetry - Labs CBC & Chem 7: 07/01/17 04:40 07/01/17 04:40 Labs: Abnormal lab results 06/28/17 07/01/17 07/01/17 Range/Units 10:53 04:40 04:40 RBC 3.38 L (3.65-5.03) M/mm3 Hgb 10.7 L (11.8-15.2) gm/dl Hct 31.9 L (35.5-45.6) % RDW 20.1 H (13.2-15.2) % Plt Count 63 L (140-440) K/mm3 Seg Neuts % (Manual) 81.0 H (40.0-70.0) % Lymphocytes % (Manual) 7.0 L (13.4-35.0) % Nucleated RBC % 5.0 H (0.0-0.9) % Lymphocytes # (Manual) 0.5 L (1.2-5.4) K/mm3 PT 24.4 H (12.2-14.9) Sec. INR 2.08 H (0.87-1.13) Potassium (3.6-5.0) mmol/L Creatinine (0.8-1.5) mg/dL Glucose (75-100) mg/dL Calcium (8.4-10.2) mg/dL Total Bilirubin (0.1-1.2) mg/dL AST (5-40) units/L ALT (7-56) units/L Total Protein (6.3-8.2) g/dL Albumin (3.9-5) g/dL Actin IgG Antibody 21 H (<20) U 07/01/ Range/Units 04:40 RBC (3.65-5.03) M/mm3 Hgb (11.8-15.2) gm/dl Hct (35.5-45.6) % RDW (13.2-15.2) % Plt Count (140-440) K/mm3 Seg Neuts % (Manual) (40.0-70.0) % Lymphocytes % (Manual) (13.4-35.0) % Nucleated RBC % (0.0-0.9) % Lymphocytes # (Manual) (1.2-5.4) K/mm3 PT (12.2-14.9) Sec. INR (0.87-1.13) Potassium 3.2 L (3.6-5.0) mmol/L Creatinine 0.2 L (0.8-1.5) mg/dL Glucose 121 H (75-100) mg/dL Calcium 7.7 L (8.4-10.2) mg/dL Total Bilirubin 24.10 H (0.1-1.2) mg/dL AST 153 H (5-40) units/L ALT 60 H (7-56) units/L Total Protein 4.9 L D (6.3-8.2) g/dL Albumin 3.0 L (3.9-5) g/dL Actin IgG Antibody (<20) U
--- NOTE | 2017-07-01 13:38 | Gastroenterology Progress Note ---
Assessment and Plan - Patient Problems (1) Cirrhosis of liver Current Visit: Yes Status: Acute Qualifiers: Hepatic cirrhosis type: H Ascites presence: A Plan to address problem: End stage liver disease. Highly jaundiced. Now appears to be in ETOH withdrawl. Will have a challenge balancing any sedatives with his very poor hepatic function to keep him out of PSE. Would discuss potential hospice options with family in this setting as his prognosis seems very poor overall. Steroids OK for possible superimposed ETOH hepatitis as there is little else to offer him unfortunately. (2) Hepatitis C antibody positive in blood Current Visit: Yes Status: Acute Subjective Date of service: 07/01/17 Principal diagnosis: Cirrhosis, jaundice Interval history: No complaint. ( patient is very confused) Objective - Constitutional Vitals: Temp Pulse Resp BP Pulse Ox 98.4 F 92 H 22 97/59 94 07/01/17 12:32 07/01/17 12:32 07/01/17 12:32 07/01/17 12:32 07/01/17 12:32 General appearance: no acute distress - EENT ENT: hearing intact, clear oral mucosa - Neck Neck: supple, normal ROM - Respiratory Respiratory effort: normal Respiratory: bilateral: CTA - Cardiovascular Rhythm: regular - Extremities Extremities: pulses intact, No edema, normal color, Full ROM - Gastrointestinal General gastrointestinal: Present: soft, non-tender, non-distended, normal bowel sounds - Neurologic Neurological: disoriented, strength equal bilaterally - Psychiatric Psychiatric: no appropriate mood/affect, no intact judgment & insight - Labs CBC & Chem 7: 07/01/17 04:40 07/01/17 04:40 Labs: Laboratory Results - last 24 hr 06/28/17 07/01/17 07/01/17 10:53 04:40 04:40 WBC 7.5 RBC 3.38 L Hgb 10.7 L Hct 31.9 L MCV 94 MCH 32 MCHC 33 RDW 20.1 H Plt Count 63 L Add Manual Diff Complete Total Counted 100 Seg Neuts % (Manual) 81.0 H Band Neutrophils % 6.0 Lymphocytes % (Manual) 7.0 L Reactive Lymphs % (Man) 0 Monocytes % (Manual) 6.0 Eosinophils % (Manual) 0 Basophils % (Manual) 0 Metamyelocytes % 0 Myelocytes % 0 Promyelocytes % 0 Blast Cells % 0 Nucleated RBC % 5.0 H Seg Neutrophils # Man 6.1 Band Neutrophils # 0.5 Lymphocytes # (Manual) 0.5 L Abs React Lymphs (Man) 0.0 Monocytes # (Manual) 0.5 Eosinophils # (Manual) 0.0 Basophils # (Manual) 0.0 Metamyelocytes # 0.0 Myelocytes # 0.0 Promyelocytes # 0.0 Blast Cells # 0.0 WBC Morphology Not Reportable Hypersegmented Neuts Not Reportable Hyposegmented Neuts Not Reportable Hypogranular Neuts Not Reportable Smudge Cells Not Reportable Toxic Granulation Not Reportable Toxic Vacuolation Not Reportable Dohle Bodies Not Reportable Pelger-Huet Anomaly Not Reportable Mak Rods Not Reportable Platelet Estimate Consistent w auto Clumped Platelets Not Reportable Plt Clumps, EDTA Not Reportable Large Platelets Not Reportable Giant Platelets Not Reportable Platelet Satelliting Not Reportable Plt Morphology Comment Not Reportable RBC Morphology Not Reportable Dimorphic RBCs Not Reportable Polychromasia Few Hypochromasia 1+ Poikilocytosis Not Reportable Anisocytosis 1+ Microcytosis Not Reportable Macrocytosis Not Reportable Spherocytes Not Reportable Pappenheimer Bodies Not Reportable Sickle Cells Not Reportable Target Cells Rare Tear Drop Cells Not Reportable Ovalocytes Few Helmet Cells Not Reportable [place] Bodies Not Reportable [place] Rings Not Reportable [place] Cells Not Reportable Bite Cells Not Reportable Crenated Cell Not Reportable Elliptocytes Not Reportable Acanthocytes (Spur) Not Reportable Rouleaux Not Reportable Hemoglobin C Crystals Not Reportable Schistocytes Not Reportable Malaria parasites Not Reportable Binh Bodies Not Reportable Hem Pathologist Commnt No PT 24.4 H INR 2.08 H Sodium Potassium Chloride Carbon Dioxide Anion Gap BUN Creatinine Estimated GFR BUN/Creatinine Ratio Glucose Calcium Total Bilirubin AST ALT Alkaline Phosphatase Total Protein Albumin Albumin/Globulin Ratio Actin IgG Antibody 21 H 07/01/17 04:40 WBC RBC Hgb Hct MCV MCH MCHC RDW Plt Count Add Manual Diff Total Counted Seg Neuts % (Manual) Band Neutrophils % Lymphocytes % (Manual) Reactive Lymphs % (Man) Monocytes % (Manual) Eosinophils % (Manual) Basophils % (Manual) Metamyelocytes % Myelocytes % Promyelocytes % Blast Cells % Nucleated RBC % Seg Neutrophils # Man Band Neutrophils # Lymphocytes # (Manual) Abs React Lymphs (Man) Monocytes # (Manual) Eosinophils # (Manual) Basophils # (Manual) Metamyelocytes # Myelocytes # Promyelocytes # Blast Cells # WBC Morphology Hypersegmented Neuts Hyposegmented Neuts Hypogranular Neuts Smudge Cells Toxic Granulation Toxic Vacuolation Dohle Bodies Pelger-Huet Anomaly Mak Rods Platelet Estimate Clumped Platelets Plt Clumps, EDTA Large Platelets Giant Platelets Platelet Satelliting Plt Morphology Comment RBC Morphology Dimorphic RBCs Polychromasia Hypochromasia Poikilocytosis Anisocytosis Microcytosis Macrocytosis Spherocytes Pappenheimer Bodies Sickle Cells Target Cells Tear Drop Cells Ovalocytes Helmet Cells [place] Bodies [place] Rings [place] Cells Bite Cells Crenated Cell Elliptocytes Acanthocytes (Spur) Rouleaux Hemoglobin C Crystals Schistocytes Malaria parasites Binh Bodies Hem Pathologist Commnt PT INR Sodium 141 Potassium 3.2 L Chloride 103.1 Carbon Dioxide 26 Anion Gap 15 BUN 14 Creatinine 0.2 L Estimated GFR > 60 BUN/Creatinine Ratio 70 Glucose 121 H Calcium 7.7 L Total Bilirubin 24.10 H AST 153 H ALT 60 H Alkaline Phosphatase 64 Total Protein 4.9 L D Albumin 3.0 L Albumin/Globulin Ratio 1.6 Actin IgG Antibody
[2017-07-01] MEDS ORDERED: K-DUR PO ONE ×2 (14:45→17:18)
[2017-07-02] MEDS: D5NS 1,000 ML IV SCH (05:05)
[2017-07-02] MEDS: LIBRIUM PO PRN (05:05)
[2017-07-02 06:30] LABS: INR 1.63 (0.87-1.13)
[2017-07-02 06:37] LABS: Alanine Aminotransferase 59 units/L (7-56); Albumin 2.9 g/dL (3.9-5); Alkaline Phosphatase 63 units/L (35-129); Anion Gap 19 mmol/L; BUN/Creatinine Ratio 70; Blood Urea Nitrogen 14 mg/dL (9-20); Calcium 8.2 mg/dL (8.4-10.2); Carbon Dioxide 22 mmol/L (22-30); Chloride 107.9 mmol/L (98-107); Glucose 111 mg/dL (75-100); Potassium 3.2 mmol/L (3.6-5.0); Sodium 146 mmol/L (137-145)
[2017-07-02 06:50] LABS: Albumin/Globulin Ratio 1.4 %
[2017-07-02] MEDS: DELTASONE PO SCH (10:22)
[2017-07-02] MEDS: HABITROL TD SCH (10:22)
[2017-07-02] MEDS: THERAGRAN Tab PO SCH (10:22)
[2017-07-02] MEDS: AUGMENTIN 875 MG PO SCH ×2 (10:22→22:59)
[2017-07-02] MEDS: FOLVITE PO SCH (10:22)
--- NOTE | 2017-07-02 10:44 | Gastroenterology Progress Note ---
Assessment and Plan - Patient Problems (1) Cirrhosis of liver Current Visit: Yes Status: Acute Qualifiers: Hepatic cirrhosis type: H Ascites presence: A Plan to address problem: Advanced, near end stage disease. Likely has superimposed ETOH hepatitis. AST/ ALT are decreasing on prednisone. ETOH withdrawl is improving. (2) Hepatitis C antibody positive in blood Current Visit: Yes Status: Acute (3) Alcohol withdrawal delirium Current Visit: Yes Status: Acute Subjective Date of service: 07/02/17 Principal diagnosis: Cirrhosis, jaundice Interval history: Feels better today. Objective - Constitutional Vitals: Temp Pulse Resp BP Pulse Ox 97.9 F 90 20 106/68 96 07/02/17 07:51 07/02/17 07:51 07/02/17 07:51 07/02/17 07:51 07/02/17 07:51 General appearance: no acute distress - EENT ENT: hearing intact - Neck Neck: supple, normal ROM - Respiratory Respiratory effort: normal Respiratory: bilateral: CTA - Cardiovascular Rhythm: regular - Gastrointestinal General gastrointestinal: Present: soft, non-tender, non-distended, normal bowel sounds - Neurologic Neurological: alert and oriented x3 - Psychiatric Psychiatric: appropriate mood/affect, no intact judgment & insight, memory intact, agitated (mildly agitated) - Labs CBC & Chem 7: 07/01/17 04:40 07/02/17 04:38 Labs: Laboratory Results - last 24 hr 06/28/17 07/01/17 07/02/17 10:53 15:19 04:38 PT 20.1 H INR 1.63 H Sodium Potassium Chloride Carbon Dioxide Anion Gap BUN Creatinine Estimated GFR BUN/Creatinine Ratio Glucose Calcium Total Bilirubin AST ALT Alkaline Phosphatase Ammonia 56.0 Total Protein Albumin Albumin/Globulin Ratio DONALD Screen Negative 07/02/17 04:38 PT INR Sodium 146 H Potassium 3.2 L Chloride 107.9 H Carbon Dioxide 22 Anion Gap 19 BUN 14 Creatinine < 0.2 L Estimated GFR > 60 BUN/Creatinine Ratio 70 Glucose 111 H Calcium 8.2 L Total Bilirubin 25.30 H AST 141 H ALT 59 H Alkaline Phosphatase 63 Ammonia Total Protein 5.0 L Albumin 2.9 L Albumin/Globulin Ratio 1.4 DONALD Screen
[2017-07-02] MEDS: KCL 10MEQ/100ML 10 MEQ/100 ML BAG IV SCH ×2 (14:55→17:00)
--- NOTE | 2017-07-02 15:34 | Progress Note ---
Assessment and Plan Acute enecphalopathy -likley from alcohol withdrawl and elevated bilirubin - cont CIWA protocol, monitor liver function Delirium tremens - avoid ativan due to hepatic failure - placed on librium and haldol as needed - s/p banana bag, cont iv fluid hydration with D5NS - thiamin, folate, replace K Abdominal pain - likely due to acute hepatitis CT scan of the abdomen and pelvis demonstrates diffuse decreased attenuation of the liver, gallbladder dilated with a few small gallstones, no secondary findings of cholecystitis appreciated. Abd U/S also showed fatty infiltration or diffuse edema, gallstones, but CBD appeared of normal caliber. Pain control with morphine Started on PPi GI following and recommended Supportive care Hepatitis with cirrhosis Etiology unclear-most likely 2/2 viral and alcoholic hepatitis hepatitis panel + hepatitis c antibody NO hepatocellular carcinoma on contrasted CT. will need MRI to exclude carcinoma No dilated ducts to suggest obstruction from gallstones which are present on abdominal US. U/S does not suggest cholecystitis. HCV quantitation ordered Ordered AMA, ASMA, AFP, normal DONALD, ceruloplasm, ferritin and alpha I antitrypsin Monitor PT/INR continue supportive care Placed on low dose steroid Transaminitis Closely monitor liver function elevated billirubin Closely monitor liver function Headache Most likely due to elevated bilirubin CT of the head showed sinusitis otherwise negative Started on Fiorcet MRI head showed no acute infract Tobacco use Smoking cessation counseling done following admission. Patient strongly advised to quit DVT prophylaxis Lovenox Disposition: will discuss hospice with family Brief History: Patient is 52 years old male with past medical history COPD, alcohol abuse and IV drug use who present emergency department for complaint of abdominal pain, and distention. Patient localizes the pain to her epigastric area and states that it radiates to his right upper quadrant. The pain is described as a constant dull, diffuse pain that intermittently becomes sharp and well localized. Subjective Date of service: 07/02/17 Principal diagnosis: Cirrhosis, jaundice Interval history: Patient seen and examined. Medical records and medication list reviewed. Patient still, disoriented, with significant tremor Placed on restrained. called his mother but unable to reach her, left a Voice message Discussed plan of care at bedside with Rn and with GI Objective - Exam Narrative Exam: General appearance: Present: moderate distress - EENT Eyes: Present: PERRL, scaral icterus ENT: hearing intact - Neck Neck: Present: supple - Respiratory Respiratory effort: normal Respiratory: bilateral: wheezing - Cardiovascular Rhythm: regular Heart Sounds: Present: S1 & S2, tachycardic - Abdominal General gastrointestinal: Present: soft, tender, distended, other (caput medusae noted. fluid wave noted) Localized gastrointestinal: tender: RUQ, LUQ Male genitourinary: Present: deferred - Integumentary Integumentary: Present: jaundice, warm, dry - Musculoskeletal Musculoskeletal: strength equal bilaterally - Psychiatric Psychiatric: appropriate mood/affect - Neurologic Neurologic: Confused, not oriented to time place or person - Allied Health Allied health notes reviewed: nursing - Constitutional Vitals: Vital Signs - 12hr 07/02/17 07:51 Temperature 97.9 F Pulse Rate 90 Respiratory 20 Rate Blood Pressure 106/68 O2 Sat by Pulse 96 Oximetry - Labs CBC & Chem 7: 07/01/17 04:40 07/02/17 04:38 Labs: Abnormal lab results 07/02/17 07/02/17 Range/Units 04:38 04:38 PT 20.1 H (12.2-14.9) Sec. INR 1.63 H (0.87-1.13) Sodium 146 H (137-145) mmol/L Potassium 3.2 L (3.6-5.0) mmol/L Chloride 107.9 H (98-107) mmol/L Creatinine < 0.2 L (0.8-1.5) mg/dL Glucose 111 H (75-100) mg/dL Calcium 8.2 L (8.4-10.2) mg/dL Total Bilirubin 25.30 H (0.1-1.2) mg/dL AST 141 H (5-40) units/L ALT 59 H (7-56) units/L Total Protein 5.0 L (6.3-8.2) g/dL Albumin 2.9 L (3.9-5) g/dL
--- NOTE | 2017-07-02 20:34 | Event Note ---
Date: 07/02/17 Patient has no significant pulmonary problems at this time. No respiratory distress. O2 saturation 93% on room air.Chest xray reported unremarkable. History of smoking. Smoking cessation teaching already done on admission. Signing off the case. If any pulmonary help needed call us back.
[2017-07-03 05:46] LABS: Hematocrit 35.3 % (35.5-45.6)
[2017-07-03 05:56] LABS: Alanine Aminotransferase 65 units/L (7-56); Alkaline Phosphatase 95 units/L (35-129); Anion Gap 16 mmol/L; BUN/Creatinine Ratio 65; Blood Urea Nitrogen 13 mg/dL (9-20); Calcium 8.1 mg/dL (8.4-10.2); Carbon Dioxide 23 mmol/L (22-30); Chloride 105.9 mmol/L (98-107); Glucose 109 mg/dL (75-100); Potassium 3.5 mmol/L (3.6-5.0); Sodium 141 mmol/L (137-145)
[2017-07-03 06:24] LABS: Albumin/Globulin Ratio 1.3 %; Total Protein 5.4 g/dL (6.3-8.2)
[2017-07-03] MEDS: D5NS 1,000 ML IV SCH (06:39)
[2017-07-03] MEDS: AUGMENTIN 875 MG PO SCH ×2 (10:17→22:00)
[2017-07-03] MEDS: DELTASONE PO SCH (10:17)
[2017-07-03] MEDS: THERAGRAN Tab PO SCH (10:17)
[2017-07-03] MEDS: HABITROL TD SCH (10:18)
[2017-07-03] MEDS: FOLVITE PO SCH (10:18)
--- NOTE | 2017-07-03 10:27 | Gastroenterology Progress Note ---
Assessment and Plan - Patient Problems (1) Cirrhosis of liver Current Visit: Yes Status: Acute Qualifiers: Hepatic cirrhosis type: H Ascites presence: A Plan to address problem: Probable superimposed alcoholic hepatitis. Improved clinically, although t. bili is 25. Improved ETOH withdrawl syndrome. Would D/C IVF due to risk of causing ascites in this setting. Home when mental status at baseline. Continue prednisone. (2) Hepatitis C antibody positive in blood Current Visit: Yes Status: Acute (3) Alcohol withdrawal delirium Current Visit: Yes Status: Acute Subjective Date of service: 07/03/17 Principal diagnosis: Cirrhosis, jaundice Interval history: He reports feeling better and eating well. Objective - Constitutional Vitals: Temp Pulse Resp BP Pulse Ox 97.8 F 78 20 117/76 96 07/03/17 07:29 07/03/17 07:29 07/03/17 07:29 07/03/17 07:29 07/03/17 07:29 General appearance: no acute distress, other (cooperative) - EENT ENT: hearing intact - Neck Neck: supple, normal ROM - Respiratory Respiratory effort: normal Respiratory: bilateral: CTA - Cardiovascular Rhythm: regular - Gastrointestinal General gastrointestinal: Present: soft, non-tender, distended (mild distention , ? small volume ascites.), normal bowel sounds - Neurologic Neurological: alert and oriented x3 - Labs CBC & Chem 7: 07/03/17 04:33 07/03/17 04:33 Labs: Laboratory Results - last 24 hr 07/03/17 07/03/17 04:33 04:33 Hgb 12.0 Hct 35.3 L Sodium 141 Potassium 3.5 L Chloride 105.9 Carbon Dioxide 23 Anion Gap 16 BUN 13 Creatinine < 0.2 L Estimated GFR > 60 BUN/Creatinine Ratio 65 Glucose 109 H Calcium 8.1 L Total Bilirubin 25.90 H AST 139 H ALT 65 H Alkaline Phosphatase 95 Total Protein 5.4 L Albumin 3.0 L Albumin/Globulin Ratio 1.3
--- NOTE | 2017-07-03 15:23 | Progress Note ---
Assessment and Plan Acute enecphalopathy -likley from alcohol withdrawl and elevated bilirubin - cont CICA protocol, monitor liver function Delirium tremens - avoid ativan due to hepatic failure - placed on librium and haldol as needed - s/p banana bag, and D5NS - cont thiamin, folate, replace K Abdominal pain - likely due to acute hepatitis CT scan of the abdomen and pelvis demonstrates diffuse decreased attenuation of the liver, gallbladder dilated with a few small gallstones, no secondary findings of cholecystitis appreciated. Abd U/S also showed fatty infiltration or diffuse edema, gallstones, but CBD appeared of normal caliber. Pain control with morphine Started on PPi GI following and recommended Supportive care Hepatitis with cirrhosis Etiology unclear-most likely 2/2 viral and alcoholic hepatitis hepatitis panel + hepatitis c antibody NO hepatocellular carcinoma on contrasted CT. will need MRI to exclude carcinoma No dilated ducts to suggest obstruction from gallstones which are present on abdominal US. U/S does not suggest cholecystitis. HCV quantitation ordered Ordered AMA, ASMA, AFP, normal DONALD, ceruloplasm, ferritin and alpha I antitrypsin Monitor PT/INR continue supportive care Placed on low dose steroid Transaminitis Closely monitor liver function elevated billirubin Closely monitor liver function Headache Most likely due to elevated bilirubin CT of the head showed sinusitis otherwise negative Started on Fiorcet MRI head showed no acute infract Tobacco use Smoking cessation counseling done following admission. Patient strongly advised to quit DVT prophylaxis Lovenox Disposition: Discuss hospice with family, will further communicate tomorrow Brief History: Patient is 52 years old male with past medical history COPD, alcohol abuse and IV drug use who present emergency department for complaint of abdominal pain, and distention. Patient localizes the pain to her epigastric area and states that it radiates to his right upper quadrant. The pain is described as a constant dull, diffuse pain that intermittently becomes sharp and well localized. Subjective Date of service: 07/03/17 Principal diagnosis: Cirrhosis, jaundice Interval history: Patient seen and examined. Medical records and medication list reviewed. Patient more oriented today Placed off restrained. called his mother discussed in details Discussed option for hospice with family Objective - Exam Narrative Exam: General appearance: Present: moderate distress - EENT Eyes: Present: PERRL, scaral icterus ENT: hearing intact - Neck Neck: Present: supple - Respiratory Respiratory effort: normal Respiratory: bilateral: no wheezing - Cardiovascular Rhythm: regular Heart Sounds: Present: S1 & S2, tachycardic - Abdominal General gastrointestinal: Present: soft, tender, distended, other (caput medusae noted. fluid wave noted) Localized gastrointestinal: tender: RUQ, LUQ Male genitourinary: Present: deferred - Integumentary Integumentary: Present: jaundice, warm, dry - Musculoskeletal Musculoskeletal: strength equal bilaterally - Psychiatric Psychiatric: appropriate mood/affect - Neurologic Neurologic: Confused, not oriented to time place or person - Allied Health Allied health notes reviewed: nursing - Constitutional Vitals: Vital Signs - 12hr 07/03/17 07/03/17 07:29 11:25 Temperature 97.8 F 98.3 F Pulse Rate 78 93 H Respiratory 20 18 Rate Blood Pressure 117/76 100/64 O2 Sat by Pulse 96 94 Oximetry - Labs CBC & Chem 7: 07/03/17 04:33 07/03/17 04:33 Labs: Abnormal lab results 07/03/17 07/03/17 Range/Units 04:33 04:33 Hct 35.3 L (35.5-45.6) % Potassium 3.5 L (3.6-5.0) mmol/L Creatinine < 0.2 L (0.8-1.5) mg/dL Glucose 109 H (75-100) mg/dL Calcium 8.1 L (8.4-10.2) mg/dL Total Bilirubin 25.90 H (0.1-1.2) mg/dL AST 139 H (5-40) units/L ALT 65 H (7-56) units/L Total Protein 5.4 L (6.3-8.2) g/dL Albumin 3.0 L (3.9-5) g/dL
[2017-07-04 01:44] LABS: Albumin 2.8 g/dL (3.9-5); Albumin/Globulin Ratio 1.3 %; Bilirubin,Total 23.9 mg/dL (0.1-1.2); Potassium 3.8 mmol/L (3.6-5.0)
[2017-07-04 01:46] LABS: Hematocrit 34.6 % (35.5-45.6); Hemoglobin 11.5 gm/dl (11.8-15.2); Mean Corpuscular HGB Conc 33 % (32-34); Mean Corpuscular Hemoglobin 32 pg (28-32); Mean Corpuscular Volume 98 fl (84-94); Red Blood Count 3.54 M/mm3 (3.65-5.03); White Blood Count 5.9 K/mm3 (4.5-11.0)
[2017-07-04 01:58] LABS: Platelet Count 86 K/mm3 (140-440); Red Cell Distribution Width 23.1 % (13.2-15.2)
[2017-07-04 02:12] LABS: Bilirubin,Indirect 6.9 mg/dL
[2017-07-04] MEDS: LIBRIUM PO PRN ×2 (04:58→21:56)
[2017-07-04] MEDS: AUGMENTIN 875 MG PO SCH ×2 (10:11→21:57)
[2017-07-04] MEDS: DELTASONE PO SCH (10:12)
[2017-07-04] MEDS: HABITROL TD SCH (10:12)
[2017-07-04] MEDS: FOLVITE PO SCH (10:12)
[2017-07-04] MEDS: THERAGRAN Tab PO SCH (10:14)
[2017-07-04] MEDS: FIORICET PO PRN (10:15)
--- NOTE | 2017-07-04 11:17 | Gastroenterology Progress Note ---
<CAITYRODNEYCHRISTIANO Kline - Last Filed: 07/04/17 11:32> Assessment and Plan 1.cirrhosis 2.hepatitis 2.jaundice -INR 1.63, T.ben 23.9, AST 122, ALT 64-trending down -etiology unclear-most likely 2/2 viral and alcoholic hepatitis -normal DONALD, ceruloplasm, ferritin and alpha I antitrypsin -AMA, ASMA, AFP, -pending -hepatitis C antibody positive-VL and genotype pending -will order VL and genotype today- will need treatment as an outpatient -abd CT- showed diffuse decreased attenuation of the liver consistent with severe fatty infiltration or edema, gallstones but no acute cholecystitis, and no evidence of a mass -Abd U/S also showed fatty infiltration or diffuse edema, gallstones, but CBD appeared of normal caliber -MRI is pending for today to r/o hepatocellular carcinoma -clinically pt is improved-continue CIWA protocol -continue prednisone and supportive care -will follow Subjective Date of service: 07/04/17 Principal diagnosis: Cirrhosis, jaundice Interval history: Patient resting in bed. No acute distress or events overnight. Tolerating diet w /o N/V. Denies abd pain. Objective - Constitutional Vitals: Temp Pulse Resp BP Pulse Ox 98.1 F 84 20 125/78 95 07/04/17 07:30 07/04/17 07:30 07/04/17 07:30 07/04/17 07:30 07/04/17 07:30 General appearance: no acute distress - EENT Eyes: PERRL, EOM intact, scleral icterus - Respiratory Respiratory: bilateral: CTA (anterior) - Cardiovascular Rhythm: regular Heart Sounds: Present: S1 & S2 - Extremities Extremities: No edema - Gastrointestinal General gastrointestinal: Present: soft, non-tender, distended, normal bowel sounds (mildly) - Integumentary Integumentary: Present: warm, dry - Neurologic Neurological: alert and oriented x3 - Labs CBC & Chem 7: 07/04/17 00:59 07/04/17 00:59 Labs: Laboratory Results - last 24 hr 07/04/17 07/04/17 00:59 00:59 WBC 5.9 RBC 3.54 L Hgb 11.5 L Hct 34.6 L MCV 98 H MCH 32 MCHC 33 RDW 23.1 H Plt Count 86 L Potassium 3.8 Total Bilirubin 23.90 H Direct Bilirubin 17.0 H Indirect Bilirubin 6.9 AST 122 H ALT 64 H Alkaline Phosphatase 79 Total Protein 5.0 L Albumin 2.8 L Albumin/Globulin Ratio 1.3 <SILVERIO WEEMS - Last Filed: 07/04/17 14:13> Assessment and Plan - Patient Problems (1) Cirrhosis of liver Current Visit: Yes Status: Acute Qualifiers: Hepatic cirrhosis type: H Ascites presence: A Plan to address problem: Stable, but very advanced cirrhosis. Likely developing some ascites from the IVF. MRI pending to better exclude HCC as a cause of decompensation. Silverio Weems MD (2) Hepatitis C antibody positive in blood Current Visit: Yes Status: Acute (3) Alcohol withdrawal delirium Current Visit: Yes Status: Acute Objective - Constitutional Vitals: Temp Pulse Resp BP Pulse Ox 98.7 F 86 20 104/68 92 07/04/17 12:07 07/04/17 12:07 07/04/17 12:07 07/04/17 12:07 07/04/17 12:07 - Labs CBC & Chem 7: 07/04/17 00:59 07/04/17 00:59 Labs: Laboratory Results - last 24 hr 07/04/17 07/04/17 00:59 00:59 WBC 5.9 RBC 3.54 L Hgb 11.5 L Hct 34.6 L MCV 98 H MCH 32 MCHC 33 RDW 23.1 H Plt Count 86 L Potassium 3.8 Total Bilirubin 23.90 H Direct Bilirubin 17.0 H Indirect Bilirubin 6.9 AST 122 H ALT 64 H Alkaline Phosphatase 79 Total Protein 5.0 L Albumin 2.8 L Albumin/Globulin Ratio 1.3
--- NOTE | 2017-07-04 15:57 | Progress Note ---
Assessment and Plan /Acute enecphalopathy -likley from alcohol withdrawl and elevated bilirubin - cont [facility] protocol, monitor liver function - mental status much improved /Delirium tremens, resolving - avoid ativan due to hepatic failure - placed on librium and haldol as needed - s/p banana bag, and D5NS - cont thiamin, folate, replace K - stopped iv fluid now due to concern of developing ascitis /Abdominal pain likely due to acute hepatitis - viral vs alcoholic CT scan of the abdomen and pelvis demonstrates diffuse decreased attenuation of the liver, gallbladder dilated with a few small gallstones, no secondary findings of cholecystitis appreciated. Abd U/S also showed fatty infiltration or diffuse edema, gallstones, but CBD appeared of normal caliber. Pain control with morphine, cont on PPi GI following and recommended Supportive care /Acute Hepatitis with cirrhosis Etiology unclear-most likely 2/2 viral and alcoholic hepatitis hepatitis panel + hepatitis c antibody NO hepatocellular carcinoma on contrasted CT. ordered MRI to exclude carcinoma No dilated ducts to suggest obstruction from gallstones which are present on abdominal US. U/S does not suggest cholecystitis. HCV quantitation ordered pending AMA, ASMA, AFP, normal DONALD, ceruloplasm, ferritin and alpha I antitrypsin -hepatitis C antibody positive-VL and genotype pending - ordered VL and genotype today- will need treatment as an outpatient Monitor PT/INR, continue supportive care Placed on low dose steroid po daily will need tapering dose of steroid for 10 days on discharge /Transaminitis Closely monitor liver function INR 1.63, AST 122, ALT 64-trending down etiology unclear-most likely 2/2 viral and alcoholic hepatitis /elevated billirubin Closely monitor liver function T.ben 23.9 /Headache Most likely due to elevated bilirubin CT of the head showed sinusitis otherwise negative Started on Fiorcet MRI head showed no acute infract /Tobacco use Smoking cessation counseling done following admission. Patient strongly advised to quit /Alcohol abuse counselled for abstinence /Sinusitis placed on augmentin, can stop from tomorrow /DVT prophylaxis SCD Disposition: Discuss hospice with family, patient also agreeable. Brief History: Patient is 52 years old male with past medical history COPD, alcohol abuse and IV drug use who present emergency department for complaint of abdominal pain, and distention. Patient localizes the pain to her epigastric area and states that it radiates to his right upper quadrant. The pain is described as a constant dull, diffuse pain that intermittently becomes sharp and well localized. Subjective Date of service: 07/04/17 Principal diagnosis: Cirrhosis, jaundice Interval history: Patient seen and examined. Medical records and medication list reviewed. Patient more oriented today, agreeable for hospice Placed off restrained. discussed plan of care with RN and CM counselled for alcohol cessation Objective - Exam Narrative Exam: General appearance: Present: no distress - EENT Eyes: Present: PERRL, scaral icterus ENT: hearing intact - Neck Neck: Present: supple - Respiratory Respiratory effort: normal Respiratory: bilateral: no wheezing - Cardiovascular Rhythm: regular Heart Sounds: Present: S1 & S2, tachycardic - Abdominal General gastrointestinal: Present: soft, tender, distended, other (caput medusae noted. fluid wave noted) Localized gastrointestinal: tender: RUQ, LUQ Male genitourinary: Present: deferred - Integumentary Integumentary: Present: jaundice, warm, dry - Musculoskeletal Musculoskeletal: strength equal bilaterally - Psychiatric Psychiatric: appropriate mood/affect - Neurologic Neurologic: oriented to time place and person, no focal deficit - Allied Health Allied health notes reviewed: nursing - Constitutional Vitals: Vital Signs - 12hr 07/04/17 07/04/17 07/04/17 03:57 07:30 12:07 Temperature 97.7 F 98.1 F 98.7 F Pulse Rate 89 84 86 Respiratory 18 20 20 Rate Blood Pressure 125/78 104/68 Blood Pressure 116/76 [Right] O2 Sat by Pulse 95 92 Oximetry - Labs CBC & Chem 7: 07/04/17 00:59 07/04/17 00:59 Labs: Abnormal lab results 07/04/17 07/04/17 Range/Units 00:59 00:59 RBC 3.54 L (3.65-5.03) M/mm3 Hgb 11.5 L (11.8-15.2) gm/dl Hct 34.6 L (35.5-45.6) % MCV 98 H (84-94) fl RDW 23.1 H (13.2-15.2) % Plt Count 86 L (140-440) K/mm3 Total Bilirubin 23.90 H (0.1-1.2) mg/dL Direct Bilirubin 17.0 H (0-0.2) mg/dL AST 122 H (5-40) units/L ALT 64 H (7-56) units/L Total Protein 5.0 L (6.3-8.2) g/dL Albumin 2.8 L (3.9-5) g/dL
[2017-07-05 05:20] LABS: INR 1.43 (0.87-1.13)
[2017-07-05 05:31] LABS: Alanine Aminotransferase 66 units/L (7-56); Albumin 2.6 g/dL (3.9-5); Albumin/Globulin Ratio 1.1 %; Alkaline Phosphatase 90 units/L (35-129); Total Protein 4.9 g/dL (6.3-8.2)
[2017-07-05 06:26] LABS: Bilirubin,Direct > 15.5 mg/dL (0-0.2); Bilirubin,Indirect 6.6 mg/dL
--- NOTE | 2017-07-05 07:52 | Progress Note ---
Assessment and Plan Assessment and plan: /Acute enecphalopathy -likley from alcohol withdrawl and elevated bilirubin - cont [facility] protocol, monitor liver function - mental status much improved /Delirium tremens, resolving - avoid ativan due to hepatic failure - placed on librium and haldol as needed - s/p banana bag, and D5NS - cont thiamin, folate, replace K - stopped iv fluid now due to concern of developing ascitis /Abdominal pain likely due to acute hepatitis - viral vs alcoholic CT scan of the abdomen and pelvis demonstrates diffuse decreased attenuation of the liver, gallbladder dilated with a few small gallstones, no secondary findings of cholecystitis appreciated. Abd U/S also showed fatty infiltration or diffuse edema, gallstones, but CBD appeared of normal caliber. Pain control with morphine, cont on PPi GI following and recommended Supportive care /Acute Hepatitis with cirrhosis Etiology unclear-most likely 2/2 viral and alcoholic hepatitis hepatitis panel + hepatitis c antibody NO hepatocellular carcinoma on contrasted CT. ordered MRI to exclude carcinoma No dilated ducts to suggest obstruction from gallstones which are present on abdominal US. U/S does not suggest cholecystitis. HCV quantitation ordered pending AMA, ASMA, AFP, normal DONALD, ceruloplasm, ferritin and alpha I antitrypsin -hepatitis C antibody positive-VL and genotype pending - ordered VL and genotype today- will need treatment as an outpatient Monitor PT/INR, continue supportive care Placed on low dose steroid po daily will need tapering dose of steroid for 10 days on discharge /Transaminitis Closely monitor liver function INR 1.63, AST 122, ALT 64-trending down etiology unclear-most likely 2/2 viral and alcoholic hepatitis /elevated billirubin Closely monitor liver function T.ben 23.9 /Headache Most likely due to elevated bilirubin CT of the head showed sinusitis otherwise negative Started on Fiorcet MRI head showed no acute infract /Tobacco use Smoking cessation counseling done following admission. Patient strongly advised to quit /Alcohol abuse counselled for abstinence /Sinusitis placed on augmentin, can stop from tomorrow Severe malnutrition continue nutritional support /DVT prophylaxis SCD Disposition: Discuss hospice with family, patient also agreeable. Brief History: Patient is 52 years old male with past medical history COPD, alcohol abuse and IV drug use who present emergency department for complaint of abdominal pain, and distention. Patient localizes the pain to her epigastric area and states that it radiates to his right upper quadrant. The pain is described as a constant dull, diffuse pain that intermittently becomes sharp and well localized. Hospitalist Physical - Constitutional Vitals: Temp Pulse Resp BP Pulse Ox 97.4 F L 89 14 90/51 97 07/05/17 07:24 11 07:24 07/05/17 07:24 07/05/17 07:24 07/05/17 07:24 General appearance: Present: no acute distress Results - Labs CBC & Chem 7: 07/04/17 00:59 07/04/17 00:59 Labs: Laboratory Last Values WBC 5.9 K/mm3 (4.5-11.0) 07/04/17 00:59 RBC 3.54 M/mm3 (3.65-5.03) L 07/04/17 00:59 Hgb 11.5 gm/dl (11.8-15.2) L 07/04/17 00:59 Hct 34.6 % (35.5-45.6) L 07/04/17 00:59 MCV 98 fl (84-94) H 07/04/17 00:59 MCH 32 pg (28-32) 07/04/17 00:59 MCHC 33 % (32-34) 07/04/17 00:59 RDW 23.1 % (13.2-15.2) H 07/04/17 00:59 Plt Count 86 K/mm3 (140-440) L 07/04/17 00:59 Lymph % (Auto) 15.2 % (13.4-35.0) 06/28/17 02:25 Phelps % (Auto) 11.2 % (0.0-7.3) H 06/28/17 02:25 Eos % (Auto) 1.2 % (0.0-4.3) 06/28/17 02:25 Baso % (Auto) 0.7 % (0.0-1.8) 06/28/17 02:25 Lymph # 0.8 K/mm3 (1.2-5.4) L 06/28/17 02:25 Phelps # 0.6 K/mm3 (0.0-0.8) 06/28/17 02:25 Eos # 0.1 K/mm3 (0.0-0.4) 06/28/17 02:25 Baso # 0.0 K/mm3 (0.0-0.1) 06/28/17 02:25 Add Manual Diff Complete 07/01/17 04:40 Total Counted 100 07/01/17 04:40 Seg Neutrophils % Cupola Tender 06/29/17 04:28 Seg Neuts % (Manual) 81.0 % (40.0-70.0) H 07/01/17 04:40 Band Neutrophils % 6.0 % 07/01/17 04:40 Lymphocytes % (Manual) 7.0 % (13.4-35.0) L 07/01/17 04:40 Reactive Lymphs % (Man) 0 % 07/01/17 04:40 Monocytes % (Manual) 6.0 % (0.0-7.3) 07/01/17 04:40 Eosinophils % (Manual) 0 % (0.0-4.3) 07/01/17 04:40 Basophils % (Manual) 0 % (0.0-1.8) 07/01/17 04:40 Metamyelocytes % 0 % 07/01/17 04:40 Myelocytes % 0 % 07/01/17 04:40 Promyelocytes % 0 % 07/01/17 04:40 Blast Cells % 0 % 07/01/17 04:40 Nucleated RBC % 5.0 % (0.0-0.9) H 07/01/17 04:40 Seg Neutrophils # 3.9 K/mm3 (1.8-7.7) 06/28/17 02:25 Seg Neutrophils # Man 6.1 K/mm3 (1.8-7.7) 07/01/17 04:40 Band Neutrophils # 0.5 K/mm3 07/01/17 04:40 Lymphocytes # (Manual) 0.5 K/mm3 (1.2-5.4) L 07/01/17 04:40 Abs React Lymphs (Man) 0.0 K/mm3 07/01/17 04:40 Monocytes # (Manual) 0.5 K/mm3 (0.0-0.8) 07/01/17 04:40 Eosinophils # (Manual) 0.0 K/mm3 (0.0-0.4) 07/01/17 04:40 Basophils # (Manual) 0.0 K/mm3 (0.0-0.1) 07/01/17 04:40 Metamyelocytes # 0.0 K/mm3 07/01/17 04:40 Myelocytes # 0.0 K/mm3 07/01/17 04:40 Promyelocytes # 0.0 K/mm3 07/01/17 04:40 Blast Cells # 0.0 K/mm3 07/01/17 04:40 WBC Morphology Not Reportable 07/01/17 04:40 Hypersegmented Neuts Not Reportable 07/01/17 04:40 Hyposegmented Neuts Not Reportable 07/01/17 04:40 Hypogranular Neuts Not Reportable 07/01/17 04:40 Smudge Cells Not Reportable 07/01/17 04:40 Toxic Granulation Not Reportable 07/01/17 04:40 Toxic Vacuolation Not Reportable 07/01/17 04:40 Dohle Bodies Not Reportable 07/01/17 04:40 Pelger-Huet Anomaly Not Reportable 07/01/17 04:40 Mak Rods Not Reportable 07/01/17 04:40 Platelet Estimate Consistent w auto 07/01/17 04:40 Clumped Platelets Not Reportable 07/01/17 04:40 Plt Clumps, EDTA Not Reportable 07/01/17 04:40 Large Platelets Not Reportable 07/01/17 04:40 Giant Platelets Not Reportable 07/01/17 04:40 Platelet Satelliting Not Reportable 07/01/17 04:40 Plt Morphology Comment Not Reportable 07/01/17 04:40 RBC Morphology Not Reportable 07/01/17 04:40 Dimorphic RBCs Not Reportable 07/01/17 04:40 Polychromasia Few 07/01/17 04:40 Hypochromasia 1+ 07/01/17 04:40 Poikilocytosis Not Reportable 07/01/17 04:40 Anisocytosis 1+ 07/01/17 04:40 Microcytosis Not Reportable 07/01/17 04:40 Macrocytosis Not Reportable 07/01/17 04:40 Spherocytes Not Reportable 07/01/17 04:40 Pappenheimer Bodies Not Reportable 07/01/17 04:40 Sickle Cells Not Reportable 07/01/17 04:40 Target Cells Rare 07/01/17 04:40 Tear Drop Cells Not Reportable 07/01/17 04:40 Ovalocytes Few 07/01/17 04:40 Helmet Cells Not Reportable 07/01/17 04:40 [place]ston-[place] Bodies Not Reportable 07/01/17 04:40 [place] Rings Not Reportable 07/01/17 04:40 Wisner Cells Not Reportable 07/01/17 04:40 Bite Cells Not Reportable 07/01/17 04:40 Crenated Cell Not Reportable 07/01/17 04:40 Elliptocytes Not Reportable 07/01/17 04:40 Acanthocytes (Spur) Not Reportable 07/01/17 04:40 Rouleaux Not Reportable 07/01/17 04:40 Hemoglobin C Crystals Not Reportable 07/01/17 04:40 Schistocytes Not Reportable 07/01/17 04:40 Malaria parasites Not Reportable 07/01/17 04:40 Binh Bodies Not Reportable 07/01/17 04:40 Hem Pathologist Commnt No 07/01/17 04:40 PT 18.2 Sec. (12.2-14.9) H 07/05/17 04:32 INR 1.43 (0.87-1.13) H 07/05/17 04:32 Sodium 141 mmol/L (137-145) 07/03/17 04:33 Potassium 3.8 mmol/L (3.6-5.0) 07/04/17 00:59 Chloride 105.9 mmol/L (98-107) 07/03/17 04:33 Carbon Dioxide 23 mmol/L (22-30) 07/03/17 04:33 Anion Gap 16 mmol/L 07/03/17 04:33 BUN 13 mg/dL (9-20) 07/03/17 04:33 Creatinine < 0.2 mg/dL (0.8-1.5) L 07/03/17 04:33 Estimated GFR > 60 ml/min 07/03/17 04:33 BUN/Creatinine Ratio 65 % 07/03/17 04:33 Glucose 109 mg/dL (75-100) H 07/03/17 04:33 Calcium 8.1 mg/dL (8.4-10.2) L 07/03/17 04:33 Iron 230 ug/dL (49-181) H 06/28/17 10:53 TIBC 245 mcg/dL (250-450) L 06/28/17 10:53 Ferritin 176.0 ng/mL (13.0-400.0) 06/28/17 10:53 Total Bilirubin 22.10 mg/dL (0.1-1.2) H 07/05/17 04:28 Direct Bilirubin > 15.5 mg/dL (0-0.2) H 07/05/17 04:28 Indirect Bilirubin 6.6 mg/dL 07/05/17 04:28 AST 113 units/L (5-40) H 07/05/17 04:28 ALT 66 units/L (7-56) H 07/05/17 04:28 Alkaline Phosphatase 90 units/L (35-129) 07/05/17 04:28 Ammonia 56.0 umol/L (25-60) 07/01/17 15:19 Total Protein 4.9 g/dL (6.3-8.2) L 07/05/17 04:28 Albumin 2.6 g/dL (3.9-5) L 07/05/17 04:28 Albumin/Globulin Ratio 1.1 % 07/05/17 04:28 Prealbumin 0.070 g/L (0.200-0.400) L 07/04/17 16:20 [id number] 170 mg/dL (83-199) 06/28/17 10:53 Ceruloplasmin 29 mg/dL (18-36) 06/28/17 10:53 Lipase 48 units/L (13-60) 06/28/17 04:03 Urine Opiates Screen Presumptive negative 06/28/17 00:50 Urine Methadone Screen Presumptive negative 06/28/17 00:50 Ur Barbiturates Screen Presumptive negative 06/28/17 00:50 Ur Phencyclidine Scrn Presumptive negative 06/28/17 00:50 Ur Amphetamines Screen Presumptive negative 06/28/17 00:50 U Benzodiazepines Scrn Presumptive negative 06/28/17 00:50 Urine Cocaine Screen Presumptive negative 06/28/17 00:50 U Marijuana (THC) Screen Presumptive negative 06/28/17 00:50 Drugs of Abuse Note Disclamer 06/28/17 00:50 DONALD Screen Negative (Negative) 06/28/17 10:53 Actin IgG Antibody 21 U (<20) H 06/28/17 10:53 Hepatitis A IgM Ab Non-reactive (NonReactive) 06/28/17 14:12 Hep Bs Antigen Non-reactive (Negative) 06/28/17 14:12 Hep B Core IgM Ab Non-reactive (NonReactive) 06/28/17 14:12 Hepatitis C Antibody Reactive (NonReactive) A 06/28/17 14:12 Hepatitis C Genotype Not detected 06/30/17 04:45
--- NOTE | 2017-07-05 09:53 | Gastroenterology Progress Note ---
Assessment and Plan - Patient Problems (1) Cirrhosis of liver Current Visit: Yes Status: Acute Qualifiers: Hepatic cirrhosis type: H Ascites presence: A Plan to address problem: Advanced cirrhosis. MRI planned this AM to help exclude malignancy. May be developing ascites due to the IVF load. Would stop IVF and start diuretics ( aldacton and lasix) at this point if ascites is comfirmed on MRI today. (2) Hepatitis C antibody positive in blood Current Visit: Yes Status: Acute (3) Alcohol withdrawal delirium Current Visit: Yes Status: Acute Plan to address problem: Improving. Subjective Date of service: 07/05/17 Principal diagnosis: Cirrhosis, jaundice Interval history: Reports feeling weak, but better overall. Objective - Constitutional Vitals: Temp Pulse Resp BP Pulse Ox 97.4 F L 89 14 90/51 97 07/05/17 07:24 07/05/17 07:24 07/05/17 07:24 07/05/17 07:24 07/05/17 07:24 General appearance: no acute distress - EENT ENT: hearing intact - Respiratory Respiratory effort: normal Respiratory: bilateral: CTA - Cardiovascular Rhythm: regular - Gastrointestinal General gastrointestinal: Present: soft, non-tender, distended (2 plus ascites, not tense), normal bowel sounds - Neurologic Neurological: alert and oriented x3 - Labs CBC & Chem 7: 07/04/17 00:59 07/04/17 00:59 Labs: Laboratory Results - last 24 hr 06/30/17 07/04/17 07/05/17 04:45 16:20 04:28 PT INR Total Bilirubin 22.10 H Direct Bilirubin > 15.5 H Indirect Bilirubin 6.6 AST 113 H ALT 66 H Alkaline Phosphatase 90 Total Protein 4.9 L Albumin 2.6 L Albumin/Globulin Ratio 1.1 Prealbumin 0.070 L Hepatitis C Genotype Not detected 07/05/17 04:32 PT 18.2 H INR 1.43 H Total Bilirubin Direct Bilirubin Indirect Bilirubin AST ALT Alkaline Phosphatase Total Protein Albumin Albumin/Globulin Ratio Prealbumin Hepatitis C Genotype
[2017-07-05] MEDS: HABITROL TD SCH (14:14)
[2017-07-05] MEDS: AUGMENTIN 875 MG PO SCH ×2 (14:14→22:49)
[2017-07-05] MEDS: THERAGRAN Tab PO SCH (14:14)
[2017-07-05] MEDS: DELTASONE PO SCH (14:15)
[2017-07-05] MEDS: FIORICET PO PRN (14:15)
[2017-07-05] MEDS: FOLVITE PO SCH (14:15)
--- NOTE | 2017-07-05 15:09 | Magnetic Resonance Report ---
MR ABDOMEN MRCP HISTORY: Hepatic malignancy. TECHNIQUE: Multiple T1 and T2-weighted images without contrast. Thick and thin slab MRCP imaging. Rotational MIP images. FINDINGS: Compared to the CT abdomen pelvis with contrast and ultrasound right upper quadrant performed on 06/28/17. Trace bilateral pleural effusions and trace ascites is identified. The liver is within normal limits of size. There is loss of signal within the liver on the in and out of phase images consistent with diffuse fatty infiltration. There is no focal suspicious hepatic mass although no IV gadolinium was administered. There is a low suspicion for hepatic malignancy. The spleen is normal size and signal. The pancreas is unremarkable. The gallbladder appears mildly dilated with mild gallbladder wall thickening measuring 3-4 mm. A few gallstones are identified. The common bile duct is normal caliber measuring 4 mm. No intrahepatic biliary dilatation. The bowel loops are within normal limits on MR. There is no evidence for bulky adenopathy, abscess or inflammatory changes. The aorta is normal caliber. IMPRESSION: Fatty infiltration of the liver. No liver mass is identified on noncontrast MR. Cholelithiasis. The gallbladder is mildly dilated with mild wall thickening. Correlate for gallbladder symptoms. Trace pleural effusions and trace ascites.
--- NOTE | 2017-07-05 16:08 | Progress Note ---
Assessment and Plan - Patient Problems (1) Alcohol withdrawal delirium Current Visit: Yes Status: Acute Plan to address problem: Much improved. Continue to monitor Subjective Date of service: 07/05/17 Principal diagnosis: Cirrhosis, jaundice Interval history: No overnight events. Vitals,labs, medications,chart reviewed. Seen and examined Objective - Exam Narrative Exam: General appearance: Present: no distress - EENT Eyes: Present: PERRL, scaral icterus ENT: hearing intact - Neck Neck: Present: supple - Respiratory Respiratory effort: normal Respiratory: bilateral: no wheezing - Cardiovascular Rhythm: regular Heart Sounds: Present: S1 & S2, tachycardic - Abdominal General gastrointestinal: Present: soft, tender, distended, other (caput medusae noted. fluid wave noted) Localized gastrointestinal: tender: RUQ, LUQ Male genitourinary: Present: deferred - Integumentary Integumentary: Present: jaundice, warm, dry - Musculoskeletal Musculoskeletal: strength equal bilaterally - Psychiatric Psychiatric: appropriate mood/affect - Neurologic Neurologic: oriented to time place and person, no focal deficit - Allied Health Allied health notes reviewed: nursing Vital Signs - 12hr 07/05/17 07/05/17 07:24 16:05 Temperature 97.4 F L 98.4 F Pulse Rate 89 90 Respiratory 14 16 Rate Blood Pressure 90/51 78/48 O2 Sat by Pulse 97 95 Oximetry CBC and BMP: 07/04/17 00:59 07/04/17 00:59 ABG, PT/INR, D-dimer: PT/INR, D-dimer PT 18.2 Sec. (12.2-14.9) H 07/05/17 04:32 INR 1.43 (0.87-1.13) H 07/05/17 04:32 Abnormal lab findings: Abnormal Labs 06/28/17 06/28/17 06/28/17 10:53 10:53 10:53 RBC Hgb Hct MCV RDW Plt Count Seg Neuts % (Manual) Lymphocytes % (Manual) Nucleated RBC % Lymphocytes # (Manual) PT 18.5 H INR 1.46 H Sodium Potassium Chloride BUN Creatinine Glucose Calcium Iron 230 H TIBC 245 L Total Bilirubin Direct Bilirubin AST ALT Total Protein Albumin Prealbumin Actin IgG Antibody 21 H Hepatitis C Antibody 06/28/17 06/29/17 06/29/17 14:12 04:28 04:28 RBC Hgb Hct 34.8 L MCV RDW 18.5 H Plt Count 70 L Seg Neuts % (Manual) 95.0 H Lymphocytes % (Manual) 2.0 L Nucleated RBC % Lymphocytes # (Manual) 0.1 L PT INR Sodium 133 L Potassium Chloride 91.6 L BUN 5 L Creatinine 0.3 L Glucose 135 H Calcium 8.2 L Iron TIBC Total Bilirubin 21.90 H Direct Bilirubin AST 267 H ALT 79 H Total Protein Albumin 3.5 L Prealbumin Actin IgG Antibody Hepatitis C Antibody Reactive A 06/29/17 06/30/17 07/01/17 04:28 04:45 04:40 RBC 3.38 L Hgb 10.7 L Hct 31.9 L MCV RDW 20.1 H Plt Count 63 L Seg Neuts % (Manual) 81.0 H Lymphocytes % (Manual) 7.0 L Nucleated RBC % 5.0 H Lymphocytes # (Manual) 0.5 L PT 18.7 H INR 1.48 H Sodium 135 L Potassium Chloride 94.0 L BUN Creatinine 0.3 L Glucose 114 H Calcium Iron TIBC Total Bilirubin 23.90 H Direct Bilirubin AST 196 H ALT 69 H Total Protein Albumin 3.4 L Prealbumin Actin IgG Antibody Hepatitis C Antibody 07/01/17 07/01/17 07/02/17 04:40 04:40 04:38 RBC Hgb Hct MCV RDW Plt Count Seg Neuts % (Manual) Lymphocytes % (Manual) Nucleated RBC % Lymphocytes # (Manual) PT 24.4 H 20.1 H INR 2.08 H 1.63 H Sodium Potassium 3.2 L Chloride BUN Creatinine 0.2 L Glucose 121 H Calcium 7.7 L Iron TIBC Total Bilirubin 24.10 H Direct Bilirubin AST 153 H ALT 60 H Total Protein 4.9 L D Albumin 3.0 L Prealbumin Actin IgG Antibody Hepatitis C Antibody 07/02/17 07/03/17 07/03/17 04:38 04:33 04:33 RBC Hgb Hct 35.3 L MCV RDW Plt Count Seg Neuts % (Manual) Lymphocytes % (Manual) Nucleated RBC % Lymphocytes # (Manual) PT INR Sodium 146 H Potassium 3.2 L 3.5 L Chloride 107.9 H BUN Creatinine < 0.2 L < 0.2 L Glucose 111 H 109 H Calcium 8.2 L 8.1 L Iron TIBC Total Bilirubin 25.30 H 25.90 H Direct Bilirubin AST 141 H 139 H ALT 59 H 65 H Total Protein 5.0 L 5.4 L Albumin 2.9 L 3.0 L Prealbumin Actin IgG Antibody Hepatitis C Antibody 07/04/17 07/04/17 07/04/17 00:59 00:59 16:20 RBC 3.54 L Hgb 11.5 L Hct 34.6 L MCV 98 H RDW 23.1 H Plt Count 86 L Seg Neuts % (Manual) Lymphocytes % (Manual) Nucleated RBC % Lymphocytes # (Manual) PT INR Sodium Potassium Chloride BUN Creatinine Glucose Calcium Iron TIBC Total Bilirubin 23.90 H Direct Bilirubin 17.0 H AST 122 H ALT 64 H Total Protein 5.0 L Albumin 2.8 L Prealbumin 0.070 L Actin IgG Antibody Hepatitis C Antibody 07/05/17 07/05/17 04:28 04:32 RBC Hgb Hct MCV RDW Plt Count Seg Neuts % (Manual) Lymphocytes % (Manual) Nucleated RBC % Lymphocytes # (Manual) PT 18.2 H INR 1.43 H Sodium Potassium Chloride BUN Creatinine Glucose Calcium Iron TIBC Total Bilirubin 22.10 H Direct Bilirubin > 15.5 H AST 113 H ALT 66 H Total Protein 4.9 L Albumin 2.6 L Prealbumin Actin IgG Antibody Hepatitis C Antibody
[2017-07-05] MEDS: LIBRIUM PO PRN (22:49)
[2017-07-06 07:39] VITALS: BP 94/62
--- NOTE | 2017-07-06 09:31 | Gastroenterology Progress Note ---
Addendum entered and electronically signed by RODNEY CAROLINA NP 07/06/17 10: 00: pt is okay to be d/c home soon at your discretion on a 2 week prednisone taper with a f/u appt in clinic in 2 weeks Original Note: <RODNEY CAROLINA - Last Filed: 07/06/17 09:32> Assessment and Plan 1.cirrhosis 2.hepatitis 2.jaundice -INR 1.43, T.ben 22.10, AST 113, ALT 66-slowly trending down -etiology unclear-most likely 2/2 viral and alcoholic hepatitis -normal DONALD, ceruloplasm, ferritin and alpha I antitrypsin -AMA, ASMA, AFP, -pending -hepatitis C antibody positive-VL and genotype pending- will need outpatient treatment -abd CT- showed diffuse decreased attenuation of the liver consistent with severe fatty infiltration or edema, gallstones but no acute cholecystitis, and no evidence of a mass -Abd U/S also showed fatty infiltration or diffuse edema, gallstones, but CBD appeared of normal caliber -MRI yesterday showed fatty infiltration of the liver and cholelithiasis but no liver mass -clinically pt is improving-continue CIWA protocol -continue prednisone and supportive care -no further GI recommendations at this time -pt is okay to be d/c on a 2 week prednisone taper with a f/u appt in clinic (2 weeks) -will sign off Subjective Date of service: 07/06/17 Principal diagnosis: Cirrhosis, jaundice Interval history: Patient sitting up in bed eating breakfast. No acute distress or events overnight. Objective - Constitutional Vitals: Temp Pulse Resp BP Pulse Ox 97.7 F 90 18 94/62 96 07/06/17 07:37 07/06/17 07:37 07/06/17 07:37 07/06/17 07:37 07/06/17 07:37 General appearance: no acute distress, well-nourished - EENT Eyes: scleral icterus - Neck Neck: supple, normal ROM - Respiratory Respiratory: bilateral: CTA (anterior) - Cardiovascular Rhythm: regular Heart Sounds: Present: S1 & S2 - Gastrointestinal General gastrointestinal: Present: soft, tender (RUQ), distended (mildly), normal bowel sounds, hepatomegaly - Integumentary Integumentary: Present: warm, dry - Neurologic Neurological: alert and oriented x3 - Labs CBC & Chem 7: 07/04/17 00:59 07/04/17 00:59 Labs: Laboratory Results - last 24 hr 06/28/17 06/30/17 10:53 04:45 Tumor Marker AFP See scanned report Hepatitis C RNA Quant See scanned report <SILVERIO WEEMS - Last Filed: 07/06/17 10:26> Assessment and Plan - Patient Problems (1) Cirrhosis of liver Current Visit: Yes Status: Acute Qualifiers: Hepatic cirrhosis type: H Ascites presence: A Plan to address problem: The patient was seen and examined. Care plan discussed. Will f/u in the office. (2) Hepatitis C antibody positive in blood Current Visit: Yes Status: Acute (3) Alcohol withdrawal delirium Current Visit: Yes Status: Acute Objective - Constitutional Vitals: Temp Pulse Resp BP Pulse Ox 97.7 F 90 18 94/62 96 07/06/17 07:37 07/06/17 07:37 07/06/17 07:37 07/06/17 07:37 07/06/17 07:37 - Labs CBC & Chem 7: 07/04/17 00:59 07/04/17 00:59 Labs: Laboratory Results - last 24 hr 06/28/17 06/30/17 10:53 04:45 Tumor Marker AFP See scanned report Hepatitis C RNA Quant See scanned report
[2017-07-06] MEDS: DELTASONE PO SCH (09:59)
[2017-07-06] MEDS: FOLVITE PO SCH (09:59)
[2017-07-06] MEDS: THERAGRAN Tab PO SCH (09:59)
[2017-07-06] MEDS: AUGMENTIN 875 MG PO SCH (09:59)
[2017-07-06] MEDS: HABITROL TD SCH (09:59)
--- NOTE | 2017-07-06 10:16 | Discharge Summary ---
Providers - Providers Date of Admission: 06/28/17 09:31 Attending physician: ZE SELF MD 06/30/17 14:51 Consult to Physician [CONS] Routine Consulting Provider: PORTER ARAYA Reason For Exam: AMS Place consult to:: critical care Notified:: . Was contact made?: Yes If yes, spoke with:: Dr Muniz Time called:: 02:52 Comment:: MD AWARE AND ASSESS PT/pt on hold for icu 07/04/17 10:17 Physical Therapy Evaluation and Treat [CONS] Routine Comment: Reason For Exam: weakness Primary care physician: [facility] Hospitalization Condition: Stable Hospital course: Decompensated liver disease MRCP- no masses or obstruction seen Decompensated Liver Disease due to ETOH cirrhosis /Acute enecphalopathy -likley from alcohol withdrawl and elevated bilirubin - cont CIWA protocol, monitor liver function - mental status much improved /Delirium tremens, resolving - avoid ativan due to hepatic failure - placed on librium and haldol as needed - s/p banana bag, and D5NS - cont thiamin, folate, replace K - stopped iv fluid now due to concern of developing ascitis /Abdominal pain likely due to acute hepatitis - viral vs alcoholic CT scan of the abdomen and pelvis demonstrates diffuse decreased attenuation of the liver, gallbladder dilated with a few small gallstones, no secondary findings of cholecystitis appreciated. Abd U/S also showed fatty infiltration or diffuse edema, gallstones, but CBD appeared of normal caliber. Pain control with morphine, cont on PPi GI following and recommended Supportive care /Acute Hepatitis with cirrhosis Etiology unclear-most likely 2/2 viral and alcoholic hepatitis hepatitis panel + hepatitis c antibody NO hepatocellular carcinoma on contrasted CT. ordered MRI to exclude carcinoma No dilated ducts to suggest obstruction from gallstones which are present on abdominal US. U/S does not suggest cholecystitis. HCV quantitation ordered pending AMA, ASMA, AFP, normal DONALD, ceruloplasm, ferritin and alpha I antitrypsin -hepatitis C antibody positive-VL and genotype pending - ordered VL and genotype today- will need treatment as an outpatient Monitor PT/INR, continue supportive care Placed on low dose steroid po daily will need tapering dose of steroid for 10 days on discharge /Transaminitis Closely monitor liver function INR 1.63, AST 122, ALT 64-trending down etiology unclear-most likely 2/2 viral and alcoholic hepatitis /elevated billirubin Closely monitor liver function T.ben 23.9 /Headache Most likely due to elevated bilirubin CT of the head showed sinusitis otherwise negative Started on Fiorcet MRI head showed no acute infract /Tobacco use Smoking cessation counseling done following admission. Patient strongly advised to quit /Alcohol abuse counselled for abstinence /Sinusitis placed on augmentin, can stop from tomorrow Severe malnutrition continue nutritional support /DVT prophylaxis SCD Disposition: Discuss hospice with family, patient also agreeable. Brief History: Patient is 52 years old male with past medical history COPD, alcohol abuse and IV drug use who present emergency department for complaint of abdominal pain, and distention. Patient localizes the pain to her epigastric area and states that it radiates to his right upper quadrant. The pain is described as a constant dull, diffuse pain that intermittently becomes sharp and well localized. Disposition: [facility] ([facility]) Time spent for discharge: 33 minutes Core Measure Documentation - Palliative Care Palliative Care/ Comfort Measures: Hospice Care - Core Measures Any of the following diagnoses?: none Exam - Constitutional Vitals: Temp Pulse Resp BP Pulse Ox 97.7 F 90 18 94/62 96 07/06/17 07:37 07/06/17 07:37 07/06/17 07:37 07/06/17 07:37 07/06/17 07:37 Plan Follow up with: PRIMARY CARE, [Primary Care Provider] - 3-5 Days Prescriptions: Folic Acid [Folvite] 1 mg PO QDAY #30 tablet Multivitamin Tab [Multiple Vitamin TAB (Theragran)] 1 each PO QDAY #30 tablet Nicotine [Habitrol] 14 mg TD QDAY #30 patch Prednisone [predniSONE 5 mg (6-Day Pack, 21 Tabs)] 5 mg PO .TAPER #1 tab.ds.pk QUEtiapine [SEROquel] 200 mg PO BID #60 tablet
== END 2017-07-06 17:40 | disposition hospice, home (50) | DRG 432 ==
LOC: ED 00:16 → 3A 09:31
PROVIDERS: ADMIT Internal Medicine; ATTEND Internal Medicine
DX: K70.10 Alcoholic hepatitis without ascites (principal); G92 Toxic encephalopathy; E43 Unspecified severe protein-calorie malnutrition; F10.231 Alcohol dependence with withdrawal delirium; B19.9 Unspecified viral hepatitis without hepatic coma; E80.6 Other disorders of bilirubin metabolism; R20.0 Anesthesia of skin; K76.89 Other specified diseases of liver; K70.30 Alcoholic cirrhosis of liver without ascites; R74.0 Nonspecific elevation of levels of transaminase and lactic acid dehydrogenase [LDH]; F17.200 Nicotine dependence, unspecified, uncomplicated; J44.9 Chronic obstructive pulmonary disease, unspecified; F12.90 Cannabis use, unspecified, uncomplicated; J32.9 Chronic sinusitis, unspecified; Z71.6 Tobacco abuse counseling; Z71.41 Alcohol abuse counseling and surveillance of alcoholic; Z68.26 Body mass index [BMI] 26.0-26.9, adult; Z88.6 Allergy status to analgesic agent; Z82.49 Family history of ischemic heart disease and other diseases of the circulatory system
CPT/HCPCS: 36415; 70450; 70551; 71010; 74177; 74181; 76705; 80048; 80053; 80074; 80307; 82103; 82106; 82140; 82390; 82728; 83516; 83550; 83690; 84132; 84134; 85007; 85014; 85018; 85025; 85027; 85610; 86038; 87517; 87902; 93005; 93010; 94640; 96365; 96367; 96372; 96375; J1200; J1630; J1650; J1956; J2060; J2270; J2543; J2765; J2920; J2930; J3411; J3480; J7030; J7042; J7512; Q9967